=== PATIENT | male | born 1935 | race Caucasian/White ===

== ENCOUNTER → 2019-11-08 15:00 | Outpatient (CLI) | payer MEDICARE, SELFPAY ==
--- NOTE | ~2019-11-08 | XR_ITS ---
EXAMINATION: XR chest 2V EXAM DATE: 11/08/2019 15:16 INDICATION: Dyspnea. TECHNIQUE: Frontal and lateral projections of the chest obtained and reviewed. Comparison is made to prior examination from 12/15/2015. FINDINGS: The lungs are clear. There are no pleural effusions. The cardiomediastinal silhouette is within normal limits. There is no pneumothorax suspected. The bones and soft tissues are unremarkab le. IMPRESSION: No acute cardiopulmonary findings. Reviewed, dictated and finalized at location B.
== END ==
PROVIDERS: PCP Internal Medicine; Visit Provider Internal Medicine
DX: R06.00 Dyspnea, unspecified (principal)
CPT/HCPCS: 71046

== ENCOUNTER 2019-12-11 09:13 | Outpatient (CLI) | payer MEDICARE, SELFPAY ==
--- NOTE | ~2019-12-11 | NM_ITS ---
EXAMINATION: NM prabhjot stress w perfusion DATE: 12/11/2019 12:45 INDICATION: Dyspnea on exertion. TECHNIQUE: Rest images were obtained following intravenous administration of 9.3 mCi Tc99m tetrofosmi n (Myoview). The patient was infused intravenously with Lexiscan (regadenoson). Then, 27.2 mCi Tc99m tetrofosmin (Myoview) was administered intravenously, and stress images were obtained. Data was recon structed into short axis and horizontal and vertical long axis SPECT images. Gated SPECT images were also obtained. COMPARISON: None. FINDINGS: There is no definite reversible or fixed perfusion abnormality to suggest ischemia or infar ction. There is no segmental wall motion abnormality. Left ventricular ejection fraction measures > 70 %. IMPRESSION: 1. No definite ischemia or infarct. 2. Normal left ventricular ejection fraction measuring >70%. Reviewed, dictated and finalized at location A.
--- NOTE | 2019-12-11 10:46 | EST_ITS ---
Patient Info Name: Luiz Don Age: 83 years : 1935 Gender: Male Ht: 71 in Wt: 236 lbs BSA: 2.35 m2 Exam Date: 12/11/2019 10:57 AM Exam Location: [facility] Stress Patient Status: Outpatient Admit Date: 12/11/2019 Staff Ordering Physician: Perry Russ DO Attending Provider: Peryr Russ DO Exercise Technologist: Aldo Persaud RDCS, RT Exercise Physician: Venkat Magana DO Exam Type: CA stress prabhjot w NM Study Info A regadenoson stress test was performed. Summary 1. 1. Negative lexiscan stress test for ischemic ST changes by ECG criteria. 2. 2. Baseline hypertension. 3. 3. Nuclear scan to follow and will be reported separately. Please correlate with it. 4. 4. Patient informed of the above results. Protocol: Lexiscan Stress ECG Details Stage: REST Duration (min): 0 min : 54 sec HR (bpm): 59 SBP (mmHg): 141 DBP (mmHg): 82 Stage: REST Duration (min): 13 min : 31 sec HR (bpm): 61 SBP (mmHg): 141 DBP (mmHg): 82 Stage: STAGE 1 Duration (min): 0 min : 59 sec HR (bpm): 57 SBP (mmHg): 149 DBP (mmHg): 78 Stage: RECOVERY Duration (min): 1 min : 0 sec HR (bpm): 78 SBP (mmHg): 149 DBP (mmHg): 78 Stage: RECOVERY Duration (min): 2 min : 0 sec HR (bpm): 86 SBP (mmHg): 149 DBP (mmHg): 78 Stage: RECOVERY Duration (min): 3 min : 0 sec HR (bpm): 83 SBP (mmHg): 161 DBP (mmHg): 69 Stage: RECOVERY Duration (min): 3 min : 42 sec HR (bpm): 83 SBP (mmHg): 161 DBP (mmHg): 69 Rest HR: 61 bpm Peak HR: 90 bpm Rest Sys BP: 141 mmHg Peak Sys BP: 161 mmHg Max Pred HR: 138 bpm % Max Pred HR: 65 % Target HR: 117 bpm Max RPP: 14,490 bpm*mmHg Termination Reason: Completed protocol Cardiac Symptoms: None Total Time: 1 min : 0 sec Rest Blanco BP: 82 mmHg Peak Blanco BP: 69 mmHg Total Dose: 0.4 mg Resting ECG Sinus rhythm, IRBBB. Stress ECG No ST changes. Arrhythmias None. Report Signatures
--- NOTE | 2019-12-17 12:17 | WPDHOLTEREM ---
Holter/Event Monitor Holter/Event Monitor Date of procedure: 12/11/19 Procedure Type: 24 hour holter monitor Indications: Palpitations Conclusion: 1. 24 hour holter monitor on 12/11/19. 2. Underlying rhythm is sinus rhythm. HR range 46-103 bpm; average HR 67 bpm. 3. There are 17 premature supraventricular complexes and 1 supraventricular couplet. No supraventricular tachycardia. 4. There are 151 premature ventricular complexes, 2 ventricular couplets, and 3 ventricular trigeminy. No ventricular tachycardia. 5. No sinoatrial or atrioventricular blocks. No significant pauses greater than 2 seconds. 6. No symptoms available for correlation.
== END 2019-12-11 09:14 | disposition home or self-care (01) ==
PROVIDERS: PCP Internal Medicine; Visit Provider Internal Medicine
DX: R06.00 Dyspnea, unspecified (principal); R00.2 Palpitations
CPT/HCPCS: 78452; 93017; 93225; 93226; A9502; J2785

== ENCOUNTER 2020-01-24 09:29 | Outpatient (CLI) | payer MEDICARE, SELFPAY ==
--- NOTE | 2020-01-24 11:22 | PCRCNOTE ---
PT COMPLAINT OF DIZZINESS, SHORTNESS OF BREATH AND SHAKINESS AFTER 2 PUFFS ALBUTEROL DURING PFT TESTING. BP 138/78 SAO2 97% HEART RATE 64. SPOKE WITH DR. SHANKS'S OFFICE AND TOOK PT TO ER FOR EVALUATION.
--- NOTE | 2020-02-02 15:03 | WPDPFTINT ---
PFT Interpretation PFT Interpretation: This PFT met all criteria for ATS standards and reproducibility FEV/FVC post bronchodilator 72% FEV1 81% FVC 70% TLC 101% RV 109% RV/TLC 47% DLCO 94% when adjusted for alveolar volume but not adjusted for hemoglobin Flow volume loops were normal Impression: This is a normal PFT. Clinical correlation is advised.
== END 2020-01-24 09:30 | disposition home or self-care (01) ==
PROVIDERS: PCP Internal Medicine; Visit Provider Internal Medicine
DX: R06.00 Dyspnea, unspecified (principal)
CPT/HCPCS: 94375; 94726; 94729

== ENCOUNTER 2020-01-24 10:59 | Emergency (ER) | payer MEDICARE, SELFPAY ==
[2020-01-24] VITALS (12 sets, daily range): BP systolic 141–161; BP diastolic 70–85; PULSE 58–68; RESP 10–23; TEMP 36.1; O2SAT 95–100
--- NOTE | ~2020-01-24 | US_ITS ---
EXAMINATION: US venous doppler [facility] DATE: 01/24/2020 13:57 INDICATION: Left lower limb swelling TECHNIQUE: Boland scale images without and with compression and Doppler images of the left lower extrem ity veins were obtained. COMPARISON: None FINDINGS: The left common femoral vein, profunda femoral vein, femoral vein, popliteal vein, peroneal trunk, posterior tibial veins, and greater saphenous vein are patent. IMPRESSION: 1. Patent left lower extremity veins. No evidence of deep venous thrombosis. Reviewed, dictated and finalized at location A. NDARY ART TEACHER
--- NOTE | ~2020-01-24 | XR_ITS ---
EXAMINATION: XR chest 1V portable DATE: 01/24/2020 12:32 INDICATION: Shortness of breath TECHNIQUE: frontal view of the chest was obtained. COMPARISON: Chest radiograph dated 11/08/2019 FINDINGS: Small lung volumes mild bibasilar opacities most prominent at the left costophrenic angle which appea rs unchanged and would favor atelectasis over pneumonia. Pulmonary vascular congestion without rekha pulmonary edema. No pleural effusion or pneumothorax. Calcified nodules in the right upper lung zone consistent with old granulomatous disease. Heart size is within normal limits accounting for AP techn ique. IMPRESSION: 1. Mild opacities at the lung bases and favor atelectasis over pneumonia. 2. Pulmonary vascular congestion without rekha pulmonary edema. Reviewed, dictated and finalized at location A. RMAN
--- NOTE | 2020-01-24 11:20 | ECG_ITS ---
Measurements Intervals [place] Rate: 58 P: -46 CA: 124 QRS: 5 QRSD: 93 T: 27 QT: 419 QTc: 414 Interpretive Statements SINUS BRADYCARDIA BASELINE ARTIFACT- I, II, III, AVR, AVL, AVF, V1-V6 BORDERLINE ECG Electronically Signed On 01-24-2020 13:55:16 ART FRAMING MANAGER by Venkat Magana D.O.
[2020-01-24 11:47] LABS: Basophils Percent Auto 0.7 % (0.2-1.2); Eosinophils Absolute Auto 0.1 K/mm3 (0-0.3); Eosinophils Percent Auto 2.3 % (0-4.4); Hematocrit 45.1 % (42.0-52.0); Immature Granulocyte Absolute 0.01 K/mm3 (0.00-0.031); Immature Granulocyte Percent A 0.2 % (0-0.5); Lymphocytes Absolute Auto 1.25 K/mm3 (0.9-3.2); Lymphocytes Percent Auto 28.5 % (18.3-44.2); Mean Corpuscular HGB Conc 33.3 g/dl (32-36); Mean Corpuscular Hemoglobin 29.9 pg (26-34); Mean Platelet Volume 8.5 fl (7.4-10.4); Monocytes Absolute Auto 0.5 K/mm3 (0.1-0.6); Monocytes Percent Auto 11.2 % (2.6-8.5); Neutrophils Absolute Auto 2.5 K/mm3 (1.3-6.7); Neutrophils Percent Auto 57.1 % (45.5-73.1); Platelet Count Result 200 k/mm3 (150-375); Red Blood Count 5.01 M/mm3 (4.6-6.20); Red Cell Distribution Width 12.8 % (11.5-14.5); White Blood Count 4.4 K/mm3 (4.5-10.0)
[2020-01-24 11:58] LABS: Anion Gap 5 mmol/L (8-16); Blood Urea Nitrogen 23 mg/dL (9-20); Carbon Dioxide 28 mmol/L (22-30); Chloride 105 mmol/L (98-107); Estimated CRCL calculation 66 ml/min; Estimated Glomerular Filt Rate > 60; Glucose 112 mg/dL (75-110); Potassium 4.1 mmol/L (3.4-5.0); Sodium 138 mmol/L (137-145)
--- NOTE | 2020-01-24 12:18 | PC.NURSE ---
called lab for add-on Trop I Baseline 3034
[2020-01-24 12:51] LABS: Troponin I < 0.012 ng/mL (0.000-0.034)
--- NOTE | 2020-01-24 13:22 | PC.NURSE ---
PT INFORMED OF NEED FOR UA, STATES HE WILL ATTEMPT, REFUSING CATH.
--- NOTE | 2020-01-24 13:24 | ED.GENADULT ---
HPI - General Adult General Chief complaint: Unspecified Stated complaint: dizziness, sob during pul funtion test Time Seen by Provider: 01/24/20 12:07 Source: patient Mode of arrival: ambulatory Limitations: no limitations History of Present Illness HPI narrative: Patient is an 84-year-old male who presents from pulmonary function testing after being given albuterol he developed dizziness and shakiness was brought down for this upon arriving to the emergency department he notes his symptoms have resolved patient resting comfortably in the room in no distress notes he has had some mild leg swelling left more than right in the last week patient denies any pain shortness of breath URI symptoms and is currently resting asymptomatic Related Data Home Medications Medication Instructions Recorded Confirmed aspirin 81 mg tablet,delayed 81 mg PO DAILY 05/09/19 11/08/19 release ibuprofen 800 mg tablet 800 mg PO TID 05/09/19 11/08/19 mirabegron 25 mg tablet,extended 25 mg PO DAILY 05/09/19 11/08/19 release 24 hr multivitamin 1 tablet PO DAILY 05/09/19 11/08/19 Allergies Allergy/AdvReac Type Severity Reaction Status Date / Time No Known Allergies Allergy Verified 01/24/20 11:26 Review of Systems Review of Systems: All systems reviewed & are unremarkable except as noted in HPI and below PMFSH Past Medical History Medical History (Updated 01/24/20 @ 14:24 by Jason Caputo PA-C) CALHOUN (dyspnea on exertion) Essential (primary) hypertension RLS (restless legs syndrome) Type 2 diabetes mellitus without complication, with no history of insulin use Family History Family History Mother Family history of pancreatic cancer Sibling Family history of malignant neoplasm of ovary Father Family history of heart disease in male family member before age 55 Other Diabetes mellitus Social History Social History Smoking status: Never smoker Alcohol intake: current Exam Narrative: Exam Narrative: GENERAL: Well-appearing, well-nourished, and in no acute distress. HEAD: Normocephalic, atraumatic. EYES: PERRLA and EOMI. ENT: Nares clear, no rhinorrhea or epistaxis. Mucous membranes moist. NECK: Supple. No adenopathy or masses. No carotid bruits or JVD CHEST: Clear to auscultation. No respiratory distress. No wheezes rales or rhonchi HEART: Regular rate and rhythm. No murmur heard. Normal peripheral pulses. ABDOMEN: Soft, nontender, distended EXTREMITIES: Normal range of motion. 2+ edema bilateral lower extremities SKIN: Warm, dry, no rash. NEURO: No focal deficits. Alert and oriented x3. Cranial nerves II through XII grossly intact PSYCH: Normal mood and affect. Course Course Emergency Course: Patient in the room asymptomatic no high risk changes in the blood work or imaging likely could have had a reaction to the albuterol has remained asymptomatic otherwise felt appropriate for outpatient reevaluation provided with reasons to return and given a small fluid bolus in the emergency department Vital Signs Vital signs: Vital Signs Temperature 97.0 F L 01/24/20 11:17 Pulse Rate 58 L 01/24/20 11:17 Respiratory Rate 20 01/24/20 11:17 Blood Pressure 141/75 H 01/24/20 11:17 Pulse Oximetry 100 01/24/20 11:17 Temperature 97.0 F L 01/24/20 11:17 Pulse Rate 65 01/24/20 13:02 Respiratory Rate 13 01/24/20 13:02 Blood Pressure 143/77 H 01/24/20 13:02 Pulse Oximetry 97 01/24/20 13:02 Medical Decision Making [facility] Narrative Medical decision making narrative: Patient in the room in no distress aware of case findings treatment plan diagnosis agreeing to follow-up as directed or to return if symptoms worsen or concerns afebrile nontoxic-appearing no high risk changes in the blood work or imaging hemodynamically stable ABCs intact Vital Signs Vital Signs: Vital Signs Temperature
--- NOTE | 2020-01-24 13:42 | PC.NURSE ---
called chem, added BNP [id number]
[2020-01-24 14:01] LABS: NT Pro B Type Natriuretic Pept 39 PG/ML (5-100)
[2020-01-24 14:06] LABS: Add Urine Microscopic? YES; Appearance Urine Clear (Clear); Bilirubin Urine Negative (Negative); Blood Urine Negative (Negative); Color Urine Yellow (Yellow); Glucose Urine UA Negative (Negative); Ketones Urine Trace mg/dL (Negative); Leukocyte Esterase Ur Negative LEU/UL (Negative); Mucus Urine Rare /lpf; Nitrate Urine Negative (Negative); Protein Urine 1+ mg/dL (Negative); RBC Urine 0-2 /hpf (0-2); Specific Grav Ur 1.024 (1.001-1.035); Squamous Epithelial Cell Urine Rare /hpf (Few); Urobilinogen Urine Negative mg/dL (<2.0); WBC Urine 0-3 /hpf
== END 2020-01-24 14:46 | disposition home or self-care (01) ==
PROVIDERS: Emergency Medicine Emergency Medical Services; Emergency Provider Emergency Medicine; PCP Internal Medicine
DX: R42 Dizziness and giddiness (principal); I10 Essential (primary) hypertension; G25.81 Restless legs syndrome; E11.9 Type 2 diabetes mellitus without complications; R00.1 Bradycardia, unspecified; R91.8 Other nonspecific abnormal finding of lung field; R09.89 Other specified symptoms and signs involving the circulatory and respiratory systems; M79.89 Other specified soft tissue disorders; Z79.82 Long term (current) use of aspirin; R06.02 Shortness of breath
CPT/HCPCS: 36415; 71045; 80048; 81001; 83880; 84484; 85025; 93005; 93971; 94375; 94726; 94729; 99284

== ENCOUNTER → 2021-01-01 12:18 | Outpatient (CLI) | payer MEDICARE, SELFPAY ==
--- NOTE | ~2021-01-01 | MR_ITS ---
EXAMINATION: MR brain IAC wo/w con DATE: 01/01/2021 13:39 INDICATION: Sensorineural hearing loss. TECHNIQUE: Magnetic resonance imaging (MRI) of the brain, brainstem, and internal auditory canals was performed without and with 20 mL MultiHance intravenous contrast. Sequences included sagittal and ax ial T1-weighted FSE, axial diffusion-weighted FS EPI, axial T2*-weighted GRE, axial T2-weighted FLAIR Propeller, axial T2-weighted Propeller, small acxaj-gw-mxms coronal FIESTA, small nctbt-nv-fqke patricia nal T1-weighted FSE, and small ykrxq-do-ruee axial T1-weighted SPGR. Postcontrast sequences included axial T1-weighted FSE, small uzaui-cr-noiz coronal T1-weighted FSE, and small qctqm-xd-ogcd axial T1- weighted SPGR. Apparent diffusion coefficient (ADC) maps were created. COMPARISON: None. FINDINGS: There are scattered areas of nonspecific increased T2-weighted signal intensity in the cere bral white matter. There is no intracranial hemorrhage, acute infarction, or abnormal intracranial ma ss lesion. The ventricles are normal in size. The internal auditory canals and inner ears are normal. There are bilateral otomastoid effusions. There are likely changes of ocular lens replacement surger ies. The paranasal sinuses are clear. IMPRESSION: 1. Bilateral otomastoid effusions. 2. Moderate nonspecific cerebral white matter disease, which likely represents chronic small vessel i schemic disease. Reviewed, dictated and finalized at location A. IMPRESSION: 1. Bilateral otomastoid effusions. 2. Moderate nonspecific cerebral white matter disease, which likely represents chronic small vessel ischemic disease.
[2021-01-01 12:44] LABS: Estimated Glomerular Filt Rate 58
== END ==
DX: H90.3 Sensorineural hearing loss, bilateral (principal); H92.03 Otalgia, bilateral; R90.82 White matter disease, unspecified
CPT/HCPCS: 70553; A9577

== ENCOUNTER 2021-01-19 23:38 | Emergency (ER) | payer MEDICARE, SELFPAY ==
[2021-01-19 23:50] VITALS: BP 155/67; PULSE 65; RESP 16; O2SAT 99
--- NOTE | 2021-01-20 01:25 | ED.MALEGU ---
HPI - Male Genitourinary General Chief complaint: Urogenital-Male Stated complaint: I cant pee, and I need to be cathed Time Seen by Provider: 01/20/21 01:21 Source: patient Mode of arrival: ambulatory Limitations: no limitations History of Present Illness HPI Narrative: 85-year-old male status post intrathecal pain procedure today now with urinary retention since 4 PM he has not urinated. States this is can be a medication side effect. No fever, did have vomiting x1, no other complaints. No previous history of same. Related Data Home Medications Medication Instructions Recorded Confirmed aspirin 81 mg tablet,delayed 81 mg PO DAILY 05/09/19 01/21/21 release multivitamin 1 tablet PO DAILY 05/09/19 01/21/21 hydrocodone 5 mg-acetaminophen 325 1 tablet PO Q8H PRN 05/08/20 01/21/21 mg tablet Allergies Allergy/AdvReac Type Severity Reaction Status Date / Time No Known Allergies Allergy Verified 01/21/21 18:52 Review of Systems Review of Systems: CONSTITUTIONAL: no fever, no weight loss, no confusion EYES: no vision changes, no eye pain ENT: no rhinorrhea, no sore throat, no difficulty swallowing CARDIOVASCULAR: no chest pain, no leg edema, no palpitations RESPIRATORY: no cough, no shortness of breath, no hemoptysis GASTROINTESTINAL: no abdominal pain, no nausea, positive for vomiting, no diarrhea GENITOURINARY: no flank pain; urine obstruction SKIN: no rash, no jaundice MUSCULOSKELETAL: no back pain, no trauma. NEUROLOGIC: No headache, no dizziness, no focal weakness PSYCHIATRIC: No hallucinations, no suicidal ideation PMFSH Past Medical History Medical History CALHOUN (dyspnea on exertion) Essential (primary) hypertension RLS (restless legs syndrome) Type 2 diabetes mellitus without complication, with no history of insulin use Family History Family History Mother Family history of pancreatic cancer Sibling Family history of malignant neoplasm of ovary Father Family history of heart disease in male family member before age 55 Other Diabetes mellitus Social History Social History Smoking packs per day: 2 Smoking cigarettes per day: 40.0 Years smoked: 10 Smoking pack-years: 20.00 Smoking status: Former smoker Second hand tobacco smoke exposure: No Smoking end date: 12/04/1966 Alcohol intake: never Substance use: never Exam Narrative: General: alert, afebrile, answering all questions appropriately Head: normocephalic, atraumatic Eyes: EOMI bilaterally, anicteric, no injection ENT: moist mucous membranes, oropharynx patent, no rhinorrhea Neck: supple, trachea midline, no JVD Chest: equal chest rise bilaterally, no chest wall trauma noted : no CVA tend bilaterally, bladder distended EXT: no deformity noted, moving all extremities equally Skin: warm, dry, no pallor Neuro: alert, oriented x 3; CN 2-12 grossly intact, no dysarthria Psych: affect appropriate, though content normal Course Course Emergency Course: Patient with urinary retention after having an intrathecal pain procedure, has not urinated 5 hours, Sheldon catheter inserted upon arrival without difficulty patient without BPH, over 600 mL of clear urine in the cath bag. Patient states relief. Of note patient states he does not want to go home with a leg bag he was told by his doctor not to do that if he has additional trouble he will come back. Reevaluation(s) Reevaluation #1: Afebrile, feels better after cath. Does not want cath bag ambulatory with steady gait, no abdominal pain tolerating po has followup with PMD tomorrow Date: 01/20/21 Time: 02:55 Vital Signs Vital signs: Vital Signs Pulse Rate 65 01/19/21 23:50 Respiratory Rate 16 01/19/21 23:50 Blood Pressure 155/67 H 01/19/21 23:50 Pulse Oximetry 99 01/19/21 23:50 Pulse Rate 74
--- NOTE | 2021-01-20 02:45 | PC.NURSE ---
Pt wanted Catheter out. ERP aware and gave VRBO to take out hogan . Pt hogan removed.
[2021-01-20 02:48] LABS: Add Urine Microscopic? YES; Appearance Urine Clear (Clear); Bilirubin Urine Negative (Negative); Blood Urine Negative (Negative); Color Urine Yellow (Yellow); Glucose Urine UA Negative (Negative); Ketones Urine 1+ mg/dL (Negative); Leukocyte Esterase Ur Negative LEU/UL (Negative); Mucus Urine Few /lpf; Nitrate Urine Negative (Negative); Protein Urine Negative (Negative); Specific Grav Ur 1.023 (1.001-1.035); Squamous Epithelial Cell Urine Rare /hpf (Few); WBC Urine 0-3 /hpf
[2021-01-20 02:58] VITALS: BP 142/72; PULSE 74; RESP 16; O2SAT 99
== END 2021-01-20 02:59 | disposition home or self-care (01) ==
PROVIDERS: Emergency Provider Emergency Medicine; PCP Internal Medicine
DX: R33.9 Retention of urine, unspecified (principal); I10 Essential (primary) hypertension; G25.81 Restless legs syndrome; E11.9 Type 2 diabetes mellitus without complications
CPT/HCPCS: 81001; 99283

== ENCOUNTER 2021-01-21 12:53 | Observation (INO) | payer MEDICARE, SELFPAY ==
--- NOTE | ~2021-01-21 | XR_ITS ---
EXAMINATION: XR chest 1V portable INDICATION: Fever, hypertension TECHNIQUE: Portable AP chest at 1521 hours COMPARISON: 01/24/2020 FINDINGS: The lungs are free of acute opacities. There is no pleural effusion or pneumothorax. The ca rdiomediastinal silhouette is normal. IMPRESSION: 1. No acute cardiopulmonary abnormality. Reviewed, dictated and finalized at location B.
[2021-01-21 13:14] VITALS: BP 149/67; PULSE 104; RESP 14; TEMP 37.8; O2SAT 99
[2021-01-21 13:59] LABS: Add Urine Microscopic? YES; Appearance Urine Cloudy (Clear); Bilirubin Urine Negative (Negative); Blood Urine 3+ (Negative); Color Urine Amber (Yellow); Glucose Urine UA Negative (Negative); Ketones Urine 2+ mg/dL (Negative); Leukocyte Esterase Ur 1+ LEU/UL (Negative); Mucus Urine Moderate /lpf; Nitrate Urine Negative (Negative); Protein Urine 2+ mg/dL (Negative); RBC Urine >75 /hpf (0-2); Specific Grav Ur 1.021 (1.001-1.035); Squamous Epithelial Cell Urine Occasional /hpf (Few); WBC Urine >75 /hpf
[2021-01-21 14:41] LABS: Basophils Percent Auto 0.3 % (0.2-1.2); Hemoglobin 13.7 g/dL (14.0-18.0); Immature Granulocyte Absolute 0.07 K/mm3 (0.00-0.031); Immature Granulocyte Percent A 0.5 % (0-0.5); Lymphocytes Absolute Auto 0.87 K/mm3 (0.9-3.2); Lymphocytes Percent Auto 6.1 % (18.3-44.2); Mean Corpuscular HGB Conc 33.4 g/dl (32-36); Mean Corpuscular Hemoglobin 30.8 pg (26-34); Mean Corpuscular Volume 92.1 fl (80-100); Mean Platelet Volume 8.6 fl (7.4-10.4); Monocytes Absolute Auto 1.3 K/mm3 (0.1-0.6); Neutrophils Absolute Auto 12.1 K/mm3 (1.3-6.7); Neutrophils Percent Auto 84.1 % (45.5-73.1); Platelet Count Result 186 k/mm3 (150-375); Red Blood Count 4.45 M/mm3 (4.6-6.20); Red Cell Distribution Width 12.6 % (11.5-14.5); White Blood Count 14.4 K/mm3 (4.5-10.0)
[2021-01-21 14:52] LABS: Alanine Aminotransferase 23 U/L (4-50); Albumin Level 3.6 g/dL (3.5-5.1); Alkaline Phosphatase 60 U/L (38-126); Anion Gap 6 mmol/L (8-16); Aspartate Amino Transferase 28 U/L (17-59); Bilirubin,Total 1.2 mg/dL (0.2-1.3); Blood Urea Nitrogen 18 mg/dL (9-20); Calcium 8.9 mg/dL (8.4-10.2); Carbon Dioxide 25 mmol/L (22-30); Chloride 106 mmol/L (98-107); Estimated CRCL calculation 63 ml/min; Estimated Glomerular Filt Rate > 60; Glucose 116 mg/dL (65-110); Potassium 3.4 mmol/L (3.4-5.0); Sodium 137 mmol/L (137-145)
[2021-01-21] MEDS: SODIUM CHLORIDE 0.9% IV 500 ML 999 ML IV CONT (15:04)
[2021-01-21 15:15] VITALS: BP 150/70; PULSE 93; RESP 17; TEMP 37; O2SAT 98
[2021-01-21] MEDS: SODIUM CHLORIDE 0.9% IV 1,000 ML 999 ML IV CONT (15:55)
--- NOTE | 2021-01-21 16:01 | ED.GENADULT ---
HPI - General Adult General Chief complaint: Urogenital-Male Stated complaint: hematuria Time Seen by Provider: 01/21/21 13:24 Source: patient Mode of arrival: ambulatory Limitations: no limitations History of Present Illness HPI narrative: Patient presents with chief complaint of increased urinary frequency, pain and bleeding with urination that has worsened since being straight catheterized in this ER on Monday for urinary retention. Patient denies seeing blood clots. He reports he only has pain with urination. He denies difficulty voiding or feelings of retention. He has not seen his urologist dr chaudhary regarding his symptoms. He denies fever, nausea, vomiting, diarrhea. Related Data Home Medications Medication Instructions Recorded Confirmed aspirin 81 mg tablet,delayed 81 mg PO DAILY 05/09/19 11/20/20 release multivitamin 1 tablet PO DAILY 05/09/19 11/20/20 hydrocodone 5 mg-acetaminophen 325 1 tablet PO Q6H PRN 05/08/20 11/20/20 mg tablet Allergies Allergy/AdvReac Type Severity Reaction Status Date / Time No Known Allergies Allergy Verified 11/20/20 13:28 Review of Systems Review of Systems: CONSTITUTIONAL: Denies fever, chills, or sweats. EYES: Denies visual changes, redness, or discharge. ENT: Denies rhinorrhea, congestion, sore throat, or otalgia. CARDIOVASCULAR: Denies chest pain, palpitations, or edema. RESPIRATORY: Denies cough or dyspnea. GASTROINTESTINAL: Denies abdominal pain, nausea, vomiting, or diarrhea. GENITOURINARY: Reports dysuria and hematuria. SKIN: Denies rash or itching. MUSCULOSKELETAL: Denies back pain, myalgia, or joint pain NEUROLOGIC: Denies headache, numbness, dizziness, or weakness. PSYCHIATRIC: Denies anxiety or depression. [facility], [facility] Past Medical History Medical History CALHOUN (dyspnea on exertion) Essential (primary) hypertension RLS (restless legs syndrome) Type 2 diabetes mellitus without complication, with no history of insulin use Family History Family History Mother Family history of pancreatic cancer Sibling Family history of malignant neoplasm of ovary Father Family history of heart disease in male family member before age 55 Other Diabetes mellitus Social History Social History Smoking packs per day: 2 Smoking cigarettes per day: 40.0 Years smoked: 10 Smoking pack-years: 20.00 Smoking status: Former smoker Second hand tobacco smoke exposure: No Smoking end date: 12/04/1966 Alcohol intake: never Substance use: never Exam Narrative: GENERAL: Well-appearing, well-nourished. HEAD: Normocephalic, atraumatic. EYES: PERRLA and EOMI. NECK: Supple. No adenopathy or masses. No vertebral tenderness or loss of ROM. CHEST: Clear to auscultation. No respiratory distress. No wheezes rales or rhonchi HEART: Regular rate and rhythm. Normal peripheral pulses. ABDOMEN: Soft, nontender with palpation over bladder, normal active bowel sounds. No bruises noted. GENITALIA: Irritation to penile opening. No blood expressed or other lesions appreciated. Urinal with concentrated appearance to patients bedside. No pain with palpation of penis or testicles. EXTREMITIES: No acute changes in ROM. No edema. SKIN: Warm, dry, no rash. NEURO: No focal deficits. Alert and oriented x3. PSYCH: Normal mood and affect. Course Vital Signs Vital signs: Vital Signs Temperature 100.1 F H 01/21/21 13:14 Pulse Rate 104 H 01/21/21 13:14 Respiratory Rate 14 01/21/21 13:14 Blood Pressure 149/67 H 01/21/21 13:14 Pulse Oximetry 99 01/21/21 13:14 Temperature 98.6 F 01/21/21 15:15 Pulse Rate 93 01/21/21 15:15 Respiratory Rate 17 01/21/21 15:15 Blood Pressure 150/70 H 01/21/21 15:15 Pulse Oximetry 98 01/21/21 15:15 Medical Decision Making MDM Narrative Medical decisi
[2021-01-21] MEDS: HYDROcodone/acetaminophen (*CRX) 5-325 MG TABLET 1 TAB PO (16:13)
[2021-01-21 16:16] LABS: Lactic Acid Reflex 1.3 mmol/L (0.7-2.1)
[2021-01-21 19:10] VITALS: BP 159/52; PULSE 86; RESP 18; TEMP 36.3; O2SAT 99
[2021-01-21 19:11] VITALS: BP 159/52; PULSE 86; RESP 18; TEMP 36.3; O2SAT 99
[2021-01-21 19:31] VITALS: PULSE 84; RESP 18; O2SAT 96
--- NOTE | 2021-01-21 19:57 | PM.IMHP ---
H&P: HPI History of Present Illness Date/Time: 01/21/21 19:57 this is a 85-year-old year old male patient who had urinary retention this past Monday and had to be straight catheterized on that day. The patient stated that he noticed blood in his urine was having urinary frequency and urgency. Patient stated that he has some irritation. he denies any nausea vomiting or diarrhea. He denies any fever. His white count was noted to be 14.4. Patient's heart rate was initially 104 and he was given IV fluids and then is heart rate came down to the 80s. His temperature initially was 37.8? C. his urine was positive for UTI. Blood in urine cultures are pending. Chest x-ray was read as no acute cardiopulmonary abnormality. The patient was started on IV fluids and Rocephin he was also given [place]. The patient has hearing aids in but is still very hard of hearing. The patient is being admitted to observation status on the date of service of 01/21/2021. Chief Complaint: urinary frequency Review of Systems Review of Systems: All systems reviewed & are unremarkable except as noted in HPI and below Constitutional: Constitutional: Reports as per HPI and Reports no additional constitutional complaints Eyes: Eyes: Reports as per HPI and Reports no additional eye complaints ENT: Reports system reviewed and no additional complaints, except as documented and Reports Normal hearing present Cardiovascular: Cardiovascular: Reports no additional cardiovascular complaints Respiratory: Respiratory: Reports no additional respiratory complaints and Reports no additional respiratory complaints Gastrointestinal: Gastrointestinal: Reports as per HPI and Reports no additional gastrointestinal complaints Musculoskeletal: Musculoskeletal: Reports no additional musculoskeletal complaints Integumentary/Breasts: Skin/Breast: Reports system reviewed and no additional complaints, except as docu and Reports as per HPI Neurologic: Reports system reviewed and no additional complaints, except as documented, Reports as per HPI and Reports Normal hearing present Psychiatric: Psychiatric: Reports no additional psychiatric complaints and Reports as per HPI Endocrine: Endocrine: Reports no additional endocrine complaints Hematologic/Lymphatic: Hematologic/Lymphatic: Reports no additional hematologic/lymphatic complaints Allergic/Immunologic: Allergic/Immunologic: Reports no additional allergic/immunologic complaints [facility] Past Medical History Medical History (Updated 01/21/21 @ 20:05 by Kelsy Rodriguez NP) Chronic back pain DM2 (diabetes mellitus, type 2) CALHOUN (dyspnea on exertion) Essential (primary) hypertension Mixed hyperlipidemia RLS (restless legs syndrome) Type 2 diabetes mellitus without complication, with no history of insulin use Surgical History Surgical History (Updated 01/21/21 @ 20:05 by Kelsy Rodriguez NP) History of cataract extraction Hx of cholecystectomy Family History Family History Mother Family history of pancreatic cancer Sibling Family history of malignant neoplasm of ovary Father Family history of heart disease in male family member before age 55 Other Diabetes mellitus Social History Social History (Updated 01/21/21 @ 20:06 by Kelsy Rodriguez NP) Social History: the patient lives home alone his is in the alf. He has 2 children. His children are both the durable power civil rights attorney for healthcare. The patient still continues to work in sales. He denies any alcohol marijuana or illicit drugs. He is an ex-smoker. Code status full code Smoking packs per day: 2 Smoking cigarettes per day: 40.0 Years smoked: 10 Smoking pack-years: 20.00 Smoking status: Former smoker Second hand tobacco smoke exposure: No Smoking end date: 12/04/1966 Alcohol intake: never Substance use: never Meds Home Medications and Allergies Home Medi
[2021-01-21] MEDS: traZODone HCL 50 MG TABLET 300 MG PO (21:17)
[2021-01-21] MEDS: DULoxetine HCL 30 MG CAPSULE.DR PO (21:18)
--- NOTE | 2021-01-21 21:52 | ADMGEN ---
This patient, Luiz Don, was admitted to [facility] Room 332-01. Patient/family oriented to hospital policies and general routines including ID bracelet, bed and alarms, visiting hours, pain management, procedures, bathroom and other care routines, personal items, smoking policy, room service/diet, and visiting hours. Information on how to activate the Rapid Response Team has been discussed. Patient/Family are encouraged to report perceived risks to care and to ask questions if they do not understand what they are told or what they should do.
[2021-01-21 22:00] VITALS: BP 112/50; PULSE 91; RESP 18; TEMP 36.4; O2SAT 97
[2021-01-22 06:00] VITALS: BP 147/72; PULSE 98; RESP 18; TEMP 36.7; O2SAT 96
[2021-01-22 06:14] LABS: Basophils Percent Auto 0.3 % (0.2-1.2); Eosinophils Percent Auto 0.2 % (0-4.4); Hematocrit 38.7 % (42.0-52.0); Hemoglobin 12.9 g/dL (14.0-18.0); Immature Granulocyte Absolute 0.05 K/mm3 (0.00-0.031); Immature Granulocyte Percent A 0.4 % (0-0.5); Lymphocytes Absolute Auto 1.08 K/mm3 (0.9-3.2); Lymphocytes Percent Auto 8.8 % (18.3-44.2); Mean Corpuscular HGB Conc 33.3 g/dl (32-36); Mean Corpuscular Hemoglobin 29.9 pg (26-34); Mean Corpuscular Volume 89.8 fl (80-100); Mean Platelet Volume 8.5 fl (7.4-10.4); Monocytes Absolute Auto 1.1 K/mm3 (0.1-0.6); Neutrophils Percent Auto 81.3 % (45.5-73.1); Platelet Count Result 176 k/mm3 (150-375); Red Blood Count 4.31 M/mm3 (4.6-6.20); Red Cell Distribution Width 12.5 % (11.5-14.5); White Blood Count 12.3 K/mm3 (4.5-10.0)
[2021-01-22 06:24] LABS: Alanine Aminotransferase 20 U/L (4-50); Albumin Level 3.3 g/dL (3.5-5.1); Alkaline Phosphatase 55 U/L (38-126); Anion Gap 5 mmol/L (8-16); Aspartate Amino Transferase 30 U/L (17-59); Bilirubin,Total 1.1 mg/dL (0.2-1.3); Blood Urea Nitrogen 16 mg/dL (9-20); Calcium 8.6 mg/dL (8.4-10.2); Carbon Dioxide 23 mmol/L (22-30); Chloride 108 mmol/L (98-107); Estimated CRCL calculation 71 ml/min; Estimated Glomerular Filt Rate > 60; Glucose 118 mg/dL (65-110); Magnesium 1.9 mg/dL (1.6-2.3); Potassium 3.5 mmol/L (3.4-5.0); Sodium 136 mmol/L (137-145)
[2021-01-22 07:20] LABS: Thyroid Stimulating Hormone Reflex 0.749 uIU/mL (0.465-4.68)
[2021-01-22 07:50] LABS: Hemoglobin A1C 5.4 % (<5.7)
[2021-01-22] MEDS: HYDROcodone/acetaminophen (*CRX) 5-325 MG TABLET 1 TAB PO (08:49)
[2021-01-22] MEDS: DULoxetine HCL 30 MG CAPSULE.DR PO (08:50)
[2021-01-22] MEDS: lisinopriL 20 MG TABLET 40 MG PO (08:50)
[2021-01-22] MEDS: ENOXAPARIN 40 MG/0.4 ML SYRINGE SUB-Q (08:50)
[2021-01-22] MEDS: FUROSEMIDE 40 MG TABLET PO (08:50)
[2021-01-22] MEDS: MULTIVITAMINS THERAPEUTIC TAB (*BKC) 1 TABLET PO (08:50)
[2021-01-22] MEDS: PANTOPRAZOLE 40 MG TABLET PO (08:50)
[2021-01-22] MEDS: ASPIRIN 81 MG ENTERIC TABLET PO (08:50)
[2021-01-22] MEDS: CARBIDOPA/LEVODOPA 25/100 MG TABLET 1 TABLET PO (08:50)
[2021-01-22] MEDS: SIMVASTATIN 10 MG TABLET PO (08:50)
[2021-01-22 14:00] VITALS: BP 114/57; PULSE 64; RESP 16; TEMP 36.6; O2SAT 97
--- NOTE | 2021-01-22 15:12 | PM.IMPN ---
Progress Note: A&P Assessment and Plan (1) Acute UTI: Code(s): N39.0 - Urinary tract infection, site not specified Status: Acute Assessment and Plan: WBC improving Continue Rocephin BC pending Follow UC S/p straight cath on Monday, ?cause (2) DM2 (diabetes mellitus, type 2): Code(s): E11.9 - Type 2 diabetes mellitus without complications Status: Chronic Assessment and Plan: R/O A1c 5.4 Reported that he is borderline and that he is not monitoring his blood sugars or taking any medication at home (3) Mixed hyperlipidemia: Code(s): E78.2 - Mixed hyperlipidemia Status: Chronic Assessment and Plan: Continue simvastatin (4) RLS (restless legs syndrome): Code(s): G25.81 - Restless legs syndrome Status: Chronic Assessment and Plan: Continue Sinemet (5) Chronic back pain: Code(s): M54.9 - Dorsalgia, unspecified; G89.29 - Other chronic pain Status: Chronic Assessment and Plan: Pt reported plan for pain pump On chronic pain medication at home. (6) Essential (primary) hypertension: Code(s): I10 - Essential (primary) hypertension Status: Acute Assessment and Plan: Stable Continue with lisinopril and Lasix Monitor (7) Anxiety and depression: Code(s): F41.9 - Anxiety disorder, unspecified; F32.9 - Major depressive disorder, single episode, unspecified Status: Chronic Assessment and Plan: Continue Cymbalta and trazodone (8) Overactive bladder: Code(s): N32.81 - Overactive bladder Status: Acute Assessment and Plan: Reported that he is no longer taking any medication for this Subjective Date/time seen: 01/22/21 15:12 Interval history: Pt seen and evaluated; labs, vs, diagnostic reports reviewed; pt reports improved urinary symptoms Review of Systems Review of Systems: All systems reviewed & are unremarkable except as noted in HPI and below Exam Const: General: no acute distress, alert and awake Orientation/consciousness: patient oriented x3 HENMT: Head: normocephalic and atraumatic Ears: hearing grossly normal bilaterally Face and sinus: face symmetric Mouth: Yes Normal oral and palatal mucosa present Eyes: EOM: EOMs intact bilaterally Neck: Neck: full ROM, trachea midline and no JVD Resp: Effort & Inspection: normal respiratory effort Auscultation: clear to auscultation bilaterally Cardio: Jugular venous distension: no JVD Rate: regular rate Rhythm: regular rhythm Heart sounds: S1 normal heart sound present and S2 normal heart sound present GI: Inspection: normal to inspection GI Palp: Yes Soft to palpation Auscultation: normal bowel sounds : General: Yes no CVA tenderness Back/Spine/Pelvis: Back: no CVA tenderness Skin: General skin exam: normal color Rashes: no rashes Neuro: General: patient oriented x3 Cranial nerves: Yes Bilaterally intact EOM present and Yes hard of hearing Speech: normal speech Extrem: General: no clubbing, cyanosis or edema Psych: Appearance: grossly normal Affect: normal affect Judgement: Good judgement present (Psych) Objective Data Vital Signs Vital Signs: Vital Signs - 24 hr 01/21/21 15:15 01/21/21 19:10 01/21/21 19:11 Temperature 37.0 C 36.3 C L 36.3 C L Pulse Rate 93 86 86 Respiratory Rate 17 18 18 Blood Pressure 150/70 H 159/52 H 159/52 H Pulse Oximetry 98 99 99 01/21/21 19:31 01/21/21 22:00 01/22/21 06:00 Temperature 36.4 C 36.7 C Pulse Rate 84 91 98 Respiratory Rate 18 18 18 Blood Pressure 112/50 L 147/72 H Pulse Oximetry 96 97 96 Intake/Output Intake/Output: Intake & Output 01/19/21 01/20/21 01/21/21 01/22/21 23:59 23:59 23:59 23:59 Intake Total 1550 1452 Balance 1550 1452 Meds/Results Medications: Active Medications Generic Name Dose Route Start Last Admin Trade Name Freq PRN Reason Stop Dose Admin Hydrocodone Bitart/Acetaminophen 1 tab 01/21/21
--- NOTE | 2021-01-22 15:18 | PCCCNOTE ---
On 01/22/21, the student, [Deidre Ruiz ], provided care and completed [facility] documentation on this patient. I have reviewed the student's documentation and agree with the findings.
[2021-01-22 20:39] VITALS: PULSE 72; RESP 18; O2SAT 96
[2021-01-22] MEDS: traZODone HCL 50 MG TABLET 300 MG PO (21:09)
[2021-01-22 22:00] VITALS: BP 130/55; PULSE 81; RESP 18; TEMP 37.1; O2SAT 98
[2021-01-23 06:00] VITALS: BP 135/49; PULSE 70; RESP 18; TEMP 36.7; O2SAT 96
[2021-01-23 07:36] LABS: Hematocrit 37.2 % (42.0-52.0); Hemoglobin 12.5 g/dL (14.0-18.0); Mean Corpuscular HGB Conc 33.6 g/dl (32-36); Mean Corpuscular Volume 89.4 fl (80-100); Mean Platelet Volume 8.7 fl (7.4-10.4); Platelet Count Result 179 k/mm3 (150-375); Red Blood Count 4.16 M/mm3 (4.6-6.20); Red Cell Distribution Width 12.5 % (11.5-14.5); White Blood Count 8.7 K/mm3 (4.5-10.0)
[2021-01-23 07:46] LABS: Anion Gap 7 mmol/L (8-16); Blood Urea Nitrogen 15 mg/dL (9-20); Calcium 8.5 mg/dL (8.4-10.2); Carbon Dioxide 24 mmol/L (22-30); Chloride 106 mmol/L (98-107); Estimated CRCL calculation 63 ml/min; Estimated Glomerular Filt Rate > 60; Glucose 106 mg/dL (65-110); Potassium 3.5 mmol/L (3.4-5.0); Sodium 137 mmol/L (137-145)
[2021-01-23 08:00] VITALS: PULSE 70; RESP 18; O2SAT 96
[2021-01-23] MEDS: HYDROcodone/acetaminophen (*CRX) 5-325 MG TABLET 1 TAB PO ×3 (10:06→21:44)
[2021-01-23] MEDS: ENOXAPARIN 40 MG/0.4 ML SYRINGE SUB-Q (10:07)
[2021-01-23] MEDS: FUROSEMIDE 40 MG TABLET PO (10:07)
[2021-01-23] MEDS: PANTOPRAZOLE 40 MG TABLET PO (10:07)
[2021-01-23] MEDS: CARBIDOPA/LEVODOPA 25/100 MG TABLET 1 TABLET PO (10:08)
[2021-01-23] MEDS: MULTIVITAMINS THERAPEUTIC TAB (*BKC) 1 TABLET PO (10:08)
[2021-01-23] MEDS: ASPIRIN 81 MG ENTERIC TABLET PO (10:09)
--- NOTE | 2021-01-23 15:24 | PM.IMPN ---
Progress Note: A&P Assessment and Plan (1) Acute UTI: Code(s): N39.0 - Urinary tract infection, site not specified Status: Acute Assessment and Plan: WBC normalized improving Continue Rocephin BC pending UC-->Escherichia Coli S/p straight cath on Monday, ?etiology (2) DM2 (diabetes mellitus, type 2): Code(s): E11.9 - Type 2 diabetes mellitus without complications Status: Chronic Assessment and Plan: R/O A1c 5.4 Reported that he is borderline and that he is not monitoring his blood sugars or taking any medication at home (3) Mixed hyperlipidemia: Code(s): E78.2 - Mixed hyperlipidemia Status: Chronic Assessment and Plan: Continue simvastatin (4) RLS (restless legs syndrome): Code(s): G25.81 - Restless legs syndrome Status: Chronic Assessment and Plan: Continue Sinemet (5) Chronic back pain: Code(s): M54.9 - Dorsalgia, unspecified; G89.29 - Other chronic pain Status: Chronic Assessment and Plan: Pt reported plan for pain pump On chronic pain medication at home (6) Essential (primary) hypertension: Code(s): I10 - Essential (primary) hypertension Status: Acute Assessment and Plan: Stable Continue with lisinopril and Lasix Monitor (7) Anxiety and depression: Code(s): F41.9 - Anxiety disorder, unspecified; F32.9 - Major depressive disorder, single episode, unspecified Status: Chronic Assessment and Plan: Continue Cymbalta and trazodone (8) Overactive bladder: Code(s): N32.81 - Overactive bladder Status: Acute Assessment and Plan: Reported that he is no longer taking any medication for this (9) Generalized weakness: Code(s): R53.1 - Weakness Status: Acute Assessment and Plan: PT to eval and treat Fall precautions O2 sats >95% on RA Subjective Date/time seen: 01/23/21 15:24 Interval history: 01/22 Pt seen and evaluated; labs, vs, diagnostic reports reviewed; pt reports improved urinary symptoms 01/23 pt seen this a.m.; complains of some generalized weakness and CALHOUN; no other complaints Review of Systems Review of Systems: All systems reviewed & are unremarkable except as noted in HPI and below Exam Const: General: no acute distress, alert and awake Orientation/consciousness: patient oriented x3 HENMT: Head: normocephalic and atraumatic Ears: hearing grossly normal bilaterally Face and sinus: face symmetric Mouth: Yes Normal oral and palatal mucosa present Eyes: EOM: EOMs intact bilaterally Neck: Neck: full ROM, trachea midline and no JVD Resp: Effort & Inspection: normal respiratory effort Auscultation: clear to auscultation bilaterally Cardio: Jugular venous distension: no JVD Rate: regular rate Rhythm: regular rhythm Heart sounds: S1 normal heart sound present and S2 normal heart sound present GI: Inspection: normal to inspection Auscultation: normal bowel sounds : General: Yes no CVA tenderness Skin: General skin exam: normal color Rashes: no rashes Neuro: General: patient oriented x3 Cranial nerves: Yes Bilaterally intact EOM present and Yes hard of hearing Speech: normal speech Extrem: General: no clubbing, cyanosis or edema Psych: Appearance: grossly normal Affect: normal affect Judgement: Good judgement present (Psych) Objective Data Vital Signs Vital Signs: Vital Signs - 24 hr 01/22/21 20:39 01/22/21 22:00 01/23/21 06:00 Temperature 37.1 C 36.7 C Pulse Rate 72 81 70 Respiratory Rate 18 18 18 Blood Pressure 130/55 L 135/49 L Pulse Oximetry 96 98 96 01/23/21 08:00 Temperature Pulse Rate 70 Respiratory Rate 18 Blood Pressure Pulse Oximetry 96 Intake/Output Intake/Output: Intake & Output 01/20/21 01/21/21 01/22/21 01/23/21 23:59 23:59 23:59 23:59 Intake Total 1550 2482 350 Balance 1550 2482 350 Meds/Results Medications: Active Medications Generic Nam
[2021-01-23 15:31] VITALS: BP 109/52; PULSE 87; RESP 18; TEMP 36.9; O2SAT 99
[2021-01-23] MEDS: SIMVASTATIN 10 MG TABLET PO (16:47)
[2021-01-23] MEDS: lisinopriL 20 MG TABLET 40 MG PO (16:48)
[2021-01-23 21:44] VITALS: BP 147/54; PULSE 61; RESP 16; TEMP 36.2; O2SAT 97
[2021-01-23] MEDS: traZODone HCL 50 MG TABLET 300 MG PO (21:45)
--- NOTE | 2021-01-24 01:00 | PC.NURSE ---
Daylight Savings Time For Daylight Savings Time Ending in the Fall - Clocks are moved back. For Daylight Savings Time Beginning in the Spring - Clocks are moved ahead. For [facility], the time of change occurs at 0200 hrs. Time is taken from the prospecting observer. This entry on the patient's chart recognizes the change in time reflected during documentation. Example: 2 entries for vital signs may be charted for 0200 hrs.
[2021-01-24] MEDS: HYDROcodone/acetaminophen (*CRX) 5-325 MG TABLET 1 TAB PO ×4 (01:39→22:31)
[2021-01-24 06:00] VITALS: BP 141/49; PULSE 75; RESP 18; TEMP 36.2; O2SAT 94
[2021-01-24 08:00] VITALS: PULSE 75; RESP 18; O2SAT 94
[2021-01-24 08:09] LABS: Anion Gap 6 mmol/L (8-16); Blood Urea Nitrogen 14 mg/dL (9-20); Calcium 8.5 mg/dL (8.4-10.2); Carbon Dioxide 27 mmol/L (22-30); Chloride 104 mmol/L (98-107); Estimated CRCL calculation 63 ml/min; Estimated Glomerular Filt Rate > 60; Glucose 134 mg/dL (65-110); Potassium 3.2 mmol/L (3.4-5.0); Sodium 137 mmol/L (137-145)
[2021-01-24 08:32] LABS: Hematocrit 39.4 % (42.0-52.0); Hemoglobin 12.8 g/dL (14.0-18.0); Mean Corpuscular HGB Conc 32.5 g/dl (32-36); Mean Corpuscular Hemoglobin 29.8 pg (26-34); Mean Corpuscular Volume 91.8 fl (80-100); Platelet Count Result 201 k/mm3 (150-375); Red Blood Count 4.29 M/mm3 (4.6-6.20); Red Cell Distribution Width 12.6 % (11.5-14.5); White Blood Count 5.7 K/mm3 (4.5-10.0)
[2021-01-24] MEDS: CARBIDOPA/LEVODOPA 25/100 MG TABLET 1 TABLET PO (09:32)
[2021-01-24] MEDS: MULTIVITAMINS THERAPEUTIC TAB (*BKC) 1 TABLET PO (09:32)
[2021-01-24] MEDS: FUROSEMIDE 40 MG TABLET PO (09:32)
[2021-01-24] MEDS: ASPIRIN 81 MG ENTERIC TABLET PO (09:32)
[2021-01-24] MEDS: POTASSIUM CHLORIDE 20 MEQ TABLET 40 MEQ PO (09:32)
[2021-01-24] MEDS: PANTOPRAZOLE 40 MG TABLET PO (09:32)
[2021-01-24] MEDS: ENOXAPARIN 40 MG/0.4 ML SYRINGE SUB-Q (09:32)
--- NOTE | 2021-01-24 13:41 | PM.IMPN ---
Progress Note: A&P Assessment and Plan (1) Acute UTI: Code(s): N39.0 - Urinary tract infection, site not specified Status: Acute Assessment and Plan: WBC normalized improving Continue Rocephin BC pending UC-->Escherichia Coli S/p straight cath on Monday, ?etiology (2) DM2 (diabetes mellitus, type 2): Code(s): E11.9 - Type 2 diabetes mellitus without complications Status: Chronic Assessment and Plan: R/O A1c 5.4 Reported that he is borderline and that he is not monitoring his blood sugars or taking any medication at home (3) Mixed hyperlipidemia: Code(s): E78.2 - Mixed hyperlipidemia Status: Chronic Assessment and Plan: Continue simvastatin (4) RLS (restless legs syndrome): Code(s): G25.81 - Restless legs syndrome Status: Chronic Assessment and Plan: Continue Sinemet (5) Chronic back pain: Code(s): M54.9 - Dorsalgia, unspecified; G89.29 - Other chronic pain Status: Chronic Assessment and Plan: Pt reported plan for pain pump On chronic pain medication at home (6) Essential (primary) hypertension: Code(s): I10 - Essential (primary) hypertension Status: Acute Assessment and Plan: Stable Continue with lisinopril and Lasix Monitor (7) Anxiety and depression: Code(s): F41.9 - Anxiety disorder, unspecified; F32.9 - Major depressive disorder, single episode, unspecified Status: Chronic Assessment and Plan: Continue Cymbalta and trazodone (8) Overactive bladder: Code(s): N32.81 - Overactive bladder Status: Acute Assessment and Plan: Reported that he is no longer taking any medication for this (9) Generalized weakness: Code(s): R53.1 - Weakness Status: Acute Assessment and Plan: PT to eval and treat Fall precautions O2 sats >95% on RA (10) Hypokalemia: Code(s): E87.6 - Hypokalemia Status: Acute Assessment and Plan: Mild K+ 3.2 Replaced with 40 meq KCL Monitor Additional Plan d/c home in a.m. on oral antibiotics if HD stable Subjective Date/time seen: 01/24/21 13:41 Interval history: 01/22 Pt seen and evaluated; labs, vs, diagnostic reports reviewed; pt reports improved urinary symptoms 11/6 pt seen this a.m.; complains of some generalized weakness and CALHOUN; no other complaints 01/24 pt resting in bed this a.m; no acute events overnight; PT eval today Review of Systems Review of Systems: All systems reviewed & are unremarkable except as noted in HPI and below Exam Const: General: no acute distress, alert and awake Orientation/consciousness: patient oriented x3 HENMT: Head: normocephalic and atraumatic Ears: hearing grossly normal bilaterally Face and sinus: face symmetric Mouth: Yes Normal oral and palatal mucosa present Eyes: EOM: EOMs intact bilaterally Neck: Neck: full ROM, trachea midline and no JVD Resp: Effort & Inspection: normal respiratory effort Auscultation: clear to auscultation bilaterally Cardio: Jugular venous distension: no JVD Rate: regular rate Rhythm: regular rhythm Heart sounds: S1 normal heart sound present and S2 normal heart sound present GI: Inspection: normal to inspection Auscultation: normal bowel sounds : General: Yes no CVA tenderness Back/Spine/Pelvis: Back: no CVA tenderness Skin: General skin exam: normal color Rashes: no rashes Neuro: General: patient oriented x3 Cranial nerves: Yes Bilaterally intact EOM present and Yes hard of hearing Speech: normal speech Extrem: General: no clubbing, cyanosis or edema Psych: Appearance: grossly normal Affect: normal affect Judgement: Good judgement present (Psych) Objective Data Vital Signs Vital Signs: Vital Signs - 24 hr 01/23/21 15:31 01/23/21 21:44 01/24/21 06:00 Temperature 36.9 C 36.2 C L 36.2 C L Pulse Rate 87 61 75 Respiratory Rate 18 16 18 Blood Pressure 109/52 L 147/54 H 141/49 H
[2021-01-24 15:21] VITALS: BP 130/59; PULSE 73; RESP 18; TEMP 37; O2SAT 97
[2021-01-24] MEDS: SIMVASTATIN 10 MG TABLET PO (17:59)
[2021-01-24] MEDS: lisinopriL 20 MG TABLET 40 MG PO (17:59)
[2021-01-24 19:01] VITALS: BP 137/71; PULSE 68; RESP 18; TEMP 36.9; O2SAT 99
[2021-01-24] MEDS: traZODone HCL 50 MG TABLET 300 MG PO (21:11)
[2021-01-25 05:43] VITALS: BP 146/60; PULSE 55; RESP 12; TEMP 36.4; O2SAT 98
[2021-01-25] MEDS: HYDROcodone/acetaminophen (*CRX) 5-325 MG TABLET 1 TAB PO (06:07)
[2021-01-25 07:01] LABS: Anion Gap 7 mmol/L (8-16); Blood Urea Nitrogen 12 mg/dL (9-20); Calcium 8.8 mg/dL (8.4-10.2); Carbon Dioxide 27 mmol/L (22-30); Chloride 105 mmol/L (98-107); Estimated CRCL calculation 71 ml/min; Estimated Glomerular Filt Rate > 60; Glucose 102 mg/dL (65-110); Potassium 3.4 mmol/L (3.4-5.0); Sodium 139 mmol/L (137-145)
[2021-01-25] MEDS: ENOXAPARIN 40 MG/0.4 ML SYRINGE SUB-Q (10:41)
[2021-01-25] MEDS: MULTIVITAMINS THERAPEUTIC TAB (*BKC) 1 TABLET PO (10:42)
[2021-01-25] MEDS: DULoxetine HCL 30 MG CAPSULE.DR PO (10:42)
[2021-01-25] MEDS: ASPIRIN 81 MG ENTERIC TABLET PO (10:42)
[2021-01-25] MEDS: FUROSEMIDE 40 MG TABLET PO (10:42)
[2021-01-25] MEDS: PANTOPRAZOLE 40 MG TABLET PO (10:42)
[2021-01-25] MEDS: CARBIDOPA/LEVODOPA 25/100 MG TABLET 1 TABLET PO (10:42)
[2021-01-25] MEDS: lisinopriL 20 MG TABLET 40 MG PO (12:26)
[2021-01-25] MEDS: SIMVASTATIN 10 MG TABLET PO (12:27)
[2021-01-25 14:00] VITALS: BP 119/63; PULSE 80; RESP 18; TEMP 36.4; O2SAT 100
--- NOTE | 2021-01-25 14:00 | PM.DS ---
DS: Admitting Diagnosis Discharge Date 01/25/2021 Admitting Diagnosis UTI DS: Discharge Diagnosis Discharge Diagnosis (1) Acute UTI: Code(s): N39.0 - Urinary tract infection, site not specified Status: Acute Assessment and Plan: UA abnormal on presentation. Urine culture with growth of >100k E coli. Started on IV Rocephin and transition to p.o. Bactrim which will be continued to complete 7 days of antibiotic. White blood cell count normalized. Low-grade fever resolved. Blood cultures negative. (2) DM2 (diabetes mellitus, type 2): Code(s): E11.9 - Type 2 diabetes mellitus without complications Status: Chronic Assessment and Plan: A1c 5.4. No further monitoring required during hospitalization. Continue with appropriate diet. He is not on hypoglycemic agents (3) Chronic back pain: Code(s): M54.9 - Dorsalgia, unspecified; G89.29 - Other chronic pain Status: Chronic Assessment and Plan: He is scheduled for a morphine pain pump in March 2021. He is on chronic narcotic pain medication at home. Recommended daily MiraLax and Colace to avoid opioid induced constipation. (4) Essential (primary) hypertension: Code(s): I10 - Essential (primary) hypertension Status: Acute Assessment and Plan: Blood pressures monitor during hospital stay and remained well controlled. Continue lisinopril. (5) Generalized weakness: Code(s): R53.1 - Weakness Status: Acute Assessment and Plan: Likely related to UTI. He was evaluated by PT/OT during his hospital stay and felt to be consistent with prior level of function, no ongoing therapy services required. (6) Hypokalemia: Code(s): E87.6 - Hypokalemia Status: Acute Assessment and Plan: Potassium was mildly decreased at 3.2 on one occasion and was supplemented. Subsequent potassium levels were stable. This may be due to furosemide use. No potassium supplementation initiated as the patient was started on Bactrim. He is also on lisinopril, so would anticipate that his potassium levels level out with these medications. DS: Summary Hospital Course Hospital Course: Date of admission: 01/21/2021 Date of discharge: 01/25/2021 Luiz Don is an 85-year-old male with a history of hypertension, hyperlipidemia, controlled type 2 diabetes mellitus, and chronic back pain who presented to the emergency department on 01/21/2021 he was mildly tachycardic and had low-grade temperature of 100.1?, white blood cell count 10295, H&H slightly decreased, additional CBC and BMP unremarkable, UA abnormal, and CXR showed no acute findings. He was admitted to the hospitalist service for further evaluation and management. Please see above for further details. He was treated with antibiotics for UTI and had symptomatic improvement. He was feeling much better and was very eager for discharge home. Given his overall improvement, he was determined to no longer require inpatient care and was felt to be stable for discharge. We discussed worrisome signs and symptoms for which to return and he was educated on his medications. He was discharged in hemodynamically stable condition on 01/25/2021. Status at Discharge Functional status at discharge: independent ambulation Overall status at discharge: patient is back to baseline Time Spent with Patient Time attestation: Total time spent providing and/or coordinating discharge services: 45 minutes Time spent: Greater than 30 minutes Exam Narrative: Mr. Don is a well-nourished, well-appearing 85-year-old male who is lying supine in bed. He appears comfortable and is in NARD. Neuro: awake, alert and oriented x4, speech clear, no focal neuro deficits noted HEENMT: normocephalic, atraumatic, EOMI, sclerae anicteric, moist oral mucosa, very hard of hearing Neck: supple, no lymphadenopathy Respiratory: clear to auscultation bilaterally, nonl
== END 2021-01-25 15:42 | disposition home or self-care (01) ==
LOC: ANHED 16:14 → ANH3MEDSUR 17:47
PROVIDERS: Nurse Practitioner; Nurse Practitioner Adult Health; Physician Assistant; Admitting Provider Internal Medicine; Emergency Provider Emergency Medicine; PCP Internal Medicine; Visit Provider Physician Assistant
DX: N39.0 Urinary tract infection, site not specified (principal); B96.20 Unspecified Escherichia coli [E. coli] as the cause of diseases classified elsewhere; N32.81 Overactive bladder; R35.0 Frequency of micturition; E11.9 Type 2 diabetes mellitus without complications; E78.2 Mixed hyperlipidemia; F41.8 Other specified anxiety disorders; G25.81 Restless legs syndrome; G89.29 Other chronic pain; I10 Essential (primary) hypertension; M54.9 Dorsalgia, unspecified; Z87.891 Personal history of nicotine dependence
CPT/HCPCS: 36415; 71045; 80048; 80053; 81001; 83036; 83605; 83735; 84443; 85025; 85027; 87040; 87077; 87086; 87186; 96361; 96365; 96372; 97161; 99285; A9270; G0378; J0696; J1650; J7030; J7040

== ENCOUNTER 2021-03-30 16:11 | Emergency (ER) | payer MEDICARE, SELFPAY ==
[2021-03-30] VITALS (15 sets, daily range): BP systolic 130–146; BP diastolic 58–72; PULSE 54–64; RESP 12–22; TEMP 36.8; O2SAT 96–100
--- NOTE | ~2021-03-30 | XR_ITS ---
EXAMINATION: XR chest 2V DATE: 03/30/2021 16:35 INDICATION: Intermittent chest pain, hypertension TECHNIQUE: AP and lateral views of the chest are obtained. COMPARISON: 01/21/2021 FINDINGS: The lungs are free of acute opacities. There is no pleural effusion or pneumothorax. The ca rdiomediastinal silhouette is normal. There is moderate thoracic spondylosis. Surgical clips in the r ight upper quadrant are likely from prior cholecystectomy. IMPRESSION: 1. No acute cardiopulmonary abnormality. Reviewed, dictated and finalized at location F. [employer]ETARY
--- NOTE | 2021-03-30 16:18 | ECG_ITS ---
Measurements Intervals Stout Rate: 59 P: 31 IL: 168 QRS: -1 QRSD: 100 T: 8 QT: 436 QTc: 435 Interpretive Statements SINUS BRADYCARDIA BASELINE ARTIFACT- I, II, III, AVR, AVL, AVF, V1-V6 BORDERLINE ECG Electronically Signed On 03-30-2021 16:44:24 [employer] by Venkat Magana D.O.
--- NOTE | 2021-03-30 16:26 | ED.CHESTPAIN ---
HPI - Chest Pain General Chief Complaint: Chest Pain <Corona Watts MD - Last Filed: 03/31/21 11:23> Stated Complaint: sob/cp <Corona Watts MD - Last Filed: 03/31/21 11:23> Time Seen by Provider: 03/30/21 16:12 <oCrona Watts MD - Last Filed: 03/31/21 11:23> Source: patient and RN notes reviewed <Corona Watts MD - Last Filed: 03/31/21 11:23> Mode of arrival: EMS <Corona Watts MD - Last Filed: 03/31/21 11:23> Limitations: no limitations <Corona Watts MD - Last Filed: 03/31/21 11:23> History of Present Illness HPI narrative: 85-year-old male presented to the emergency department for evaluation of a pounding heartbeat. Patient states 4 times over the last few days he has had a sensation of pounding heartbeat. Patient denies any associated pain with this. Patient states he has not had a rapid heart rate. Patient denies any associated shortness of breath with it. Patient states that the episodes have occurred at rest. Patient denies any significant past medical cardiac history. Patient did have a stress test a few years ago. Patient did have a pain pump implanted about 3 days ago. The pump disperses Dilaudid. Patient had been on p.o. hydrocodone for his chronic back pain. <Corona Watts MD - Last Filed: 03/31/21 11:23> Related Data Home Medications: Home Medications Medication Instructions Recorded Confirmed aspirin 81 mg tablet,delayed 81 mg PO DAILY 05/09/19 01/26/21 release multivitamin 1 tablet PO DAILY 05/09/19 01/26/21 docusate sodium 100 mg PO BID 03/30/21 pioglitazone 15 mg DAILY 03/30/21 03/30/21 tamsulosin 0.4 mg PO DAILY 03/30/21 03/30/21 <Corona Watts MD - Last Filed: 03/31/21 11:23> Allergies/Adverse Reactions: Allergies Allergy/AdvReac Type Severity Reaction Status Date / Time No Known Allergies Allergy Verified 03/30/21 16:29 <Corona Watts MD - Last Filed: 03/31/21 11:23> Review of Systems Review of Systems: CONSTITUTIONAL: Denies fever, chills, or sweats. EYES: Denies visual changes, redness, or discharge. ENT: Denies rhinorrhea, congestion, sore throat, or otalgia. CARDIOVASCULAR: Denies chest pain or chest pressure. Patient states intermittently he has had a pounding heartbeat. RESPIRATORY: Denies cough or dyspnea. GASTROINTESTINAL: Denies abdominal pain, nausea, vomiting, or diarrhea. GENITOURINARY: Denies dysuria or hematuria. SKIN: Denies rash or itching. MUSCULOSKELETAL: Denies back pain, joint pain, or myalgia. NEUROLOGIC: Denies headache, numbness, or weakness. PSYCHIATRIC: Denies anxiety or depression. <Corona Watts MD - Last Filed: 03/31/21 11:23> [facility] Past Medical History Medical History: Medical History (Updated 03/30/21 @ 20:54 by Corona Watts MD) Chronic back pain DM2 (diabetes mellitus, type 2) CALHOUN (dyspnea on exertion) Essential (primary) hypertension Mixed hyperlipidemia RLS (restless legs syndrome) Type 2 diabetes mellitus without complication, with no history of insulin use <Corona Watts MD - Last Filed: 03/31/21 11:23> Surgical History Surgical History: Surgical History (Updated 01/21/21 @ 20:05 by Kelsy Rodriguez NP) History of cataract extraction Hx of cholecystectomy <Corona Watts MD - Last Filed: 03/31/21 11:23> Family History Family History: Family History Mother Family history of pancreatic cancer Sibling Family history of malignant neoplasm of ovary Father Family history of heart disease in male family member before age 55 Other Diabetes mellitus <Corona Watts MD - Last Filed: 03/31/21 11:23> Social History Social History: Social History Social History: the patient lives home alone his is in the jail. He has 2 children. His children are both the durable power employment attorney fo
[2021-03-30] MEDS: ASPIRIN 81 MG CHEWABLE TABLET 324 MG PO (16:47)
[2021-03-30 16:57] LABS: Basophils Absolute Auto 0.1 K/mm3 (0.0-0.1); Basophils Percent Auto 1.4 % (0.2-1.2); Eosinophils Absolute Auto 0.4 K/mm3 (0-0.3); Eosinophils Percent Auto 9.7 % (0-4.4); Hematocrit 41.3 % (42.0-52.0); Hemoglobin 13.6 g/dL (14.0-18.0); Lymphocytes Absolute Auto 1.22 K/mm3 (0.9-3.2); Lymphocytes Percent Auto 27.6 % (18.3-44.2); Mean Corpuscular HGB Conc 32.9 g/dl (32-36); Mean Corpuscular Hemoglobin 29.8 pg (26-34); Mean Corpuscular Volume 90.6 fl (80-100); Mean Platelet Volume 8.2 fl (7.4-10.4); Monocytes Absolute Auto 0.5 K/mm3 (0.1-0.6); Monocytes Percent Auto 12.2 % (2.6-8.5); Neutrophils Absolute Auto 2.2 K/mm3 (1.3-6.7); Neutrophils Percent Auto 49.1 % (45.5-73.1); Platelet Count Result 233 k/mm3 (150-375); Red Blood Count 4.56 M/mm3 (4.6-6.20); Red Cell Distribution Width 12.5 % (11.5-14.5); White Blood Count 4.4 K/mm3 (4.5-10.0)
[2021-03-30 17:10] LABS: INR 1.1; Partial Thromboplastin Time 29.1 SECONDS (22.3-36.8); Prothrombin Time 14.5 Seconds (11.1-14.7)
[2021-03-30 19:15] LABS: Alanine Aminotransferase 20 U/L (4-50); Albumin Level 3.6 g/dL (3.5-5.1); Alkaline Phosphatase 71 U/L (38-126); Anion Gap 5 mmol/L (8-16); Aspartate Amino Transferase 28 U/L (17-59); Bilirubin,Total 0.4 mg/dL (0.2-1.3); Blood Urea Nitrogen 17 mg/dL (9-20); Calcium 9.2 mg/dL (8.4-10.2); Carbon Dioxide 29 mmol/L (22-30); Chloride 102 mmol/L (98-107); Estimated CRCL calculation 55 ml/min; Estimated Glomerular Filt Rate > 60; Glucose 117 mg/dL (65-110); Lipase 69 U/L (23-300); Potassium 3.9 mmol/L (3.4-5.0); Sodium 136 mmol/L (137-145)
[2021-03-30 19:26] LABS: Troponin I < 0.012 ng/mL (0.000-0.034)
[2021-03-30 23:25] LABS: Troponin I < 0.012 ng/mL (0.000-0.034)
[2021-03-31 00:04] VITALS: BP 152/63; PULSE 58; RESP 15; O2SAT 97
== END 2021-03-30 23:44 | disposition home or self-care (01) ==
PROVIDERS: Emergency Medicine; Emergency Provider Emergency Medicine; PCP Internal Medicine
DX: R00.2 Palpitations (principal); E11.9 Type 2 diabetes mellitus without complications; I10 Essential (primary) hypertension; E78.2 Mixed hyperlipidemia; G25.81 Restless legs syndrome; M54.9 Dorsalgia, unspecified; G89.29 Other chronic pain; Z98.49 Cataract extraction status, unspecified eye; Z87.891 Personal history of nicotine dependence
CPT/HCPCS: 36415; 71046; 80053; 83690; 84484; 85025; 85610; 85730; 93005; 99284; A9270

== ENCOUNTER 2022-07-12 06:49 | Emergency (ER) | payer MEDICARE, SELFPAY ==
[2022-07-12] VITALS (15 sets, daily range): BP systolic 138–153; BP diastolic 63–81; PULSE 46–86; RESP 12–23; TEMP 36.1–36.4; O2SAT 98–100
--- NOTE | ~2022-07-12 | CT_ITS ---
EXAMINATION: CT brain wo con DATE: 07/12/2022 08:13 INDICATION: Weakness. TECHNIQUE: Computed tomography (CT) of the head was performed without intravenous contrast. The mA wa s adjusted according to patient size. Iterative reconstruction technique was employed. The dose-lengt h product was 605.33 mGy-cm. COMPARISON: Brain MRI 01/01/2021 FINDINGS: There are scattered areas of low attenuation in the cerebral white matter. There is no intr acranial hemorrhage, acute infarction, or abnormal intracranial mass lesion. The ventricles are cameron l in size. There is mild mucosal thickening in the paranasal sinuses. There are likely changes of ocu lar lens replacement surgeries. There is a right otomastoid effusion. There is a left otomastoid effu rolo. There are changes of left mastoidectomy. A left-sided cochlear implant is noted. IMPRESSION: 1. Stable moderate nonspecific cerebral white matter disease, which likely represents chronic small v essel ischemic disease. Reviewed, dictated and finalized at location A. IMPRESSION: 1. Stable moderate nonspecific cerebral white matter disease, which likely repr esents chronic small vessel ischemic disease.
--- NOTE | ~2022-07-12 | XR_ITS ---
EXAMINATION: XR chest 2V DATE: 07/12/2022 08:19 INDICATION: Dyspnea. TECHNIQUE: Frontal and lateral views of the chest were obtained. COMPARISON: Chest 2 views 03/30/2021 FINDINGS: Calcified right lung nodules and calcified right hilar lymph nodes are consistent with old granulomatous disease. No pleural effusion or pneumothorax. The heart size is normal. Surgical clips in the right upper quadrant are likely from cholecystectomy. IMPRESSION: 1. No acute cardiopulmonary disease. Reviewed, dictated and finalized at location A.
--- NOTE | 2022-07-12 07:06 | ED.SOB ---
HPI - SOB/Dyspnea General Chief Complaint: Shortness of Breath/Dyspnea Stated Complaint: shaking, lightheaded and short of breath Time Seen by Provider: 07/12/22 07:06 Source: patient and family Mode of arrival: ambulatory Limitations: no limitations History of Present Illness HPI Narrative: Patient is an 86-year-old male with a history of diabetes, hypertension, hyperlipidemia, depression, anxiety, hearing loss, presenting to the emergency department for evaluation of generalized weakness, cough and shortness of breath. Patient lives at home alone, awakened this morning reportedly felt unwell. Contacted his daughter who came to the house to evaluate him and brought him here to the emergency department for further evaluation. Patient reports he has been stuttering this morning and reports shaking in the bilateral upper extremities. He denies focal weakness or numbness. Patient denies any headache pain, chest pain, abdominal pain. No nausea or vomiting. He was able to tolerate a small amount of oral intake this morning. He reports shortness of breath that worsens with exertion. He reports chronic bilateral lower extremity swelling. Patient does report congestion, runny nose. States he recently started a new medication but cannot remember the name of it. Daughter also helps to provide the history. She is at bedside. Related Data Home Medications Medication Instructions Recorded Confirmed aspirin 81 mg tablet,delayed 81 mg PO DAILY 05/09/19 12/10/21 release (Adult Low Dose Aspirin) multivitamin (One Daily 1 tablet PO DAILY 05/09/19 12/10/21 Multivitamin tablet) docusate sodium 100 mg tablet 100 mg PO BID 03/30/21 12/10/21 glycerin 0.25 % eye drops (Clear drp ophthalmic (eye) 12/10/21 12/10/21 Eyes Dry Itchy Relief) oxybutynin chloride 15 mg 15 mg PO DAILY 12/10/21 12/10/21 tablet,extended release 24 hr sodium chloride, sodium ea .Route 12/10/21 12/10/21 bicarb-nasal rinse squeeze bottle with packet (Neilmed Sinus Rinse Complete with packet) Allergies Allergy/AdvReac Type Severity Reaction Status Date / Time No Known Allergies Allergy Verified 06/16/22 11:18 Review of Systems Review of Systems: CONSTITUTIONAL: Denies fever, chills, or sweats. EYES: Denies visual changes, redness, or discharge. ENT: Reports congestion without sore throat or otalgia CARDIOVASCULAR: Denies chest pain, palpitations, or edema. RESPIRATORY: Reports cough and shortness of breath GASTROINTESTINAL: Denies abdominal pain, nausea, vomiting, or diarrhea. GENITOURINARY: Denies dysuria or hematuria. SKIN: Denies rash or itching. MUSCULOSKELETAL: Denies back pain, joint pain, or myalgia. NEUROLOGIC: Denies headache, numbness; Reports shakiness and generalized weakness PMF Past Medical History Medical History (Updated 07/12/22 @ 09:38 by Damaris Burns MD) Acute UTI Anxiety and depression ASHD (arteriosclerotic heart disease) Chronic back pain DM2 (diabetes mellitus, type 2) CALHOUN (dyspnea on exertion) Essential (primary) hypertension Implantable intrathecal infusion pump present Mixed hyperlipidemia RLS (restless legs syndrome) Type 2 diabetes mellitus without complication, with no history of insulin use Surgical History Surgical History History of cataract extraction Hx of cholecystectomy Family History Family History Mother Family history of pancreatic cancer Sibling Family history of malignant neoplasm of ovary Father Family history of heart disease in male family member before age 55 Other Diabetes mellitus Social History Social History Social History: the patient lives home alone his is in the [facility]. He has 2 children. His children are both the durable power ob nurse for healthcare. The patient still continues to work in [employer]
--- NOTE | 2022-07-12 07:07 | ECG_ITS ---
Measurements Intervals [place] Rate: 80 P: 58 ND: 201 QRS: 4 QRSD: 105 T: 34 QT: 393 QTc: 454 Interpretive Statements SINUS RHYTHM WITH FREQUENT VENTRICULAR PREMATURE COMPLEXES POSSIBLE LEFT ATRIAL ENLARGEMENT [-0.1mV P WAVE IN V1/V2] ABNORMAL ECG COMPARED TO ECG 03/30/2021 16:19:38 SINUS RHYTHM NOW PRESENT Electronically Signed On 07-12-2022 14:41:29 CDT by Darin Short M.D.
[2022-07-12 07:36] LABS: Glucose Point of Care 100 mg/dl (65-105)
[2022-07-12 08:03] LABS: Basophils Percent Auto 0.7 % (0.2-1.2); Eosinophils Absolute Auto 0.2 K/mm3 (0-0.3); Eosinophils Percent Auto 2.8 % (0-4.4); Hematocrit 42.6 % (42.0-52.0); Hemoglobin 13.9 g/dL (14.0-18.0); Immature Granulocyte Absolute 0.01 K/mm3 (0.00-0.031); Immature Granulocyte Percent A 0.2 % (0-0.5); Lymphocytes Percent Auto 44.5 % (18.3-44.2); Mean Corpuscular HGB Conc 32.6 g/dl (32-36); Mean Corpuscular Hemoglobin 28.9 pg (26-34); Mean Corpuscular Volume 88.6 fl (80-100); Mean Platelet Volume 8.5 fl (7.4-10.4); Monocytes Absolute Auto 0.6 K/mm3 (0.1-0.6); Monocytes Percent Auto 10.8 % (2.6-8.5); Neutrophils Absolute Auto 2.2 K/mm3 (1.3-6.7); Platelet Count Result 192 k/mm3 (150-375); Red Blood Count 4.81 M/mm3 (4.6-6.20); Red Cell Distribution Width 13.2 % (11.5-14.5); White Blood Count 5.4 K/mm3 (4.5-10.0)
[2022-07-12 08:12] LABS: Alanine Aminotransferase 23 U/L (6-50); Albumin Level 3.9 g/dL (3.5-5.1); Alkaline Phosphatase 83 U/L (38-126); Anion Gap 6 mmol/L (8-16); Aspartate Amino Transferase 25 U/L (17-59); Bilirubin,Total 0.8 mg/dL (0.2-1.3); Blood Urea Nitrogen 17 mg/dL (9-20); Carbon Dioxide 28 mmol/L (22-30); Chloride 104 mmol/L (98-107); Estimated CRCL calculation 64 ml/min; Estimated Glomerular Filt Rate > 60; Glucose 99 mg/dL (65-110); Potassium 3.6 mmol/L (3.4-5.0); Sodium 138 mmol/L (137-145)
[2022-07-12 08:13] LABS: Lactic Acid Reflex 1.7 mmol/L (0.7-2.0)
[2022-07-12 08:14] LABS: INR 1.2; Prothrombin Time 14.3 Seconds (11.1-14.7)
[2022-07-12 08:15] LABS: Partial Thromboplastin Time 28.9 SECONDS (22.3-36.8)
[2022-07-12 08:24] LABS: NT Pro B Type Natriuretic Pept 102 pg/mL (19.9-100); Troponin I < 0.012 ng/mL (0.000-0.034)
[2022-07-12 08:38] LABS: Influenza A QL RT-PCR Negative (Negative); Influenza B QL RT-PCR Negative (Negative); RSV RNA, RT-PCR Negative (Negative); SARS-CoV-2 RNA PCR Negative (Negative)
[2022-07-12 08:42] LABS: Appearance Urine Clear (Clear); Bilirubin Urine Negative (Negative); Blood Urine Negative (Negative); Color Urine Yellow (Yellow); Glucose Urine UA Negative (Negative); Ketones Urine Trace mg/dL (Negative); Leukocyte Esterase Ur Negative LEU/UL (Negative); Nitrate Urine Negative (Negative); Protein Urine Negative (Negative); Specific Grav Ur 1.011 (1.001-1.035); pH Urine 8.5 (5.0-9.0)
[2022-07-12] MEDS: SODIUM CHLORIDE 0.9% IV 500 ML 999 ML IV CONT (08:47)
[2022-07-12 08:55] LABS: Add Urine Microscopic? NO
--- NOTE | 2022-07-12 09:38 | PC.NURSE ---
ambulated in [place] with pt, gait was steady with ambulation with his cane. SPO2 monitored while ambulating and the lowest SPO2 dropped with ambulation while talking was 96%. ERP notified.
== END 2022-07-12 09:59 | disposition home or self-care (01) ==
PROVIDERS: Emergency Provider Emergency Medicine; PCP Internal Medicine
DX: R06.02 Shortness of breath (principal); R25.1 Tremor, unspecified; Z20.822 Contact with and (suspected) exposure to COVID-19; F41.9 Anxiety disorder, unspecified; F32.A Depression, unspecified; I10 Essential (primary) hypertension; G89.29 Other chronic pain; E11.9 Type 2 diabetes mellitus without complications
CPT/HCPCS: 36415; 70450; 71046; 80053; 81003; 82948; 83605; 83880; 84484; 85025; 85610; 85730; 87040; 87637; 93005; 96360; 99284; J7040

== ENCOUNTER 2022-08-24 00:02 | Emergency (ER) | payer MEDICARE, SELFPAY ==
[2022-08-24 00:11] VITALS: BP 152/68; PULSE 75; RESP 18; TEMP 36.9; O2SAT 99
[2022-08-24 00:31] VITALS: BP 157/72; PULSE 77; RESP 13; TEMP 36.3; O2SAT 99
--- NOTE | 2022-08-24 00:54 | ED.GENADULT ---
HPI - General Adult General Chief complaint: Unspecified Stated complaint: terrible odor in my nose Time Seen by Provider: 08/24/22 00:32 History of Present Illness HPI narrative: This is an 86-year-old gentleman presenting ED with a chief complaint of a bad odor that he can taste and smell. His symptoms started 6 months ago after he microwave a heat CAD. They have been happening intermittently since then. The patient has no other complaints at this time. The daughter is with the patient says that he has been complaining of this for quite some time. He insisted on coming to the ER tonight because it was not improving like it usually does. Related Data Home Medications Medication Instructions Recorded Confirmed aspirin 81 mg tablet,delayed 81 mg PO DAILY 05/09/19 12/10/21 release (Adult Low Dose Aspirin) multivitamin (One Daily 1 tablet PO DAILY 05/09/19 12/10/21 Multivitamin tablet) docusate sodium 100 mg tablet 100 mg PO BID 03/30/21 12/10/21 glycerin 0.25 % eye drops (Clear drp ophthalmic (eye) 12/10/21 12/10/21 Eyes Dry Itchy Relief) oxybutynin chloride 15 mg 15 mg PO DAILY 12/10/21 12/10/21 tablet,extended release 24 hr sodium chloride, sodium ea .Route 12/10/21 12/10/21 bicarb-nasal rinse squeeze bottle with packet (Neilmed Sinus Rinse Complete with packet) Allergies Allergy/AdvReac Type Severity Reaction Status Date / Time No Known Allergies Allergy Verified 06/16/22 11:18 [facility] Past Medical History Medical History Acute UTI Anxiety and depression ASHD (arteriosclerotic heart disease) Chronic back pain DM2 (diabetes mellitus, type 2) CALHOUN (dyspnea on exertion) Essential (primary) hypertension Implantable intrathecal infusion pump present Mixed hyperlipidemia RLS (restless legs syndrome) Type 2 diabetes mellitus without complication, with no history of insulin use Surgical History Surgical History History of cataract extraction Hx of cholecystectomy Family History Family History Mother Family history of pancreatic cancer Sibling Family history of malignant neoplasm of ovary Father Family history of heart disease in male family member before age 55 Other Diabetes mellitus Social History Social History Social History: the patient lives home alone his is in the intermediate. He has 2 children. His children are both the durable power cadd drafter for healthcare. The patient still continues to work in sales. He denies any alcohol marijuana or illicit drugs. He is an ex-smoker. Code status full code Smoking packs per day: 2 Smoking cigarettes per day: 40.0 Years smoked: 10 Smoking pack-years: 20.00 Smoking status: Former smoker Second hand tobacco smoke exposure: No Smoking end date: 12/04/1966 Alcohol intake: never Substance use: never Lack of Transportation: No Lack of Food: Never True Current Housing: I Have Housing Concerned About Future Housing: No Difficulty Paying Gas/Electric Bills: Decline to Answer Difficulty Paying for Meds: Decline to Answer Currently Unemployed: Decline to Answer Education: Bachelor's Degree Difficulty w/ Childcare or Family Care: YES Spiritual care concerns: No Exam Narrative: APPEARANCE: No apparent distress. A&O x4 Head: atraumatic. EYES: EOMI, NOSE: Atraumatic NECK: Trachea midline RESPIRATORY: No increased rate of breathing, clear to auscultation CARDIOVASCULAR: RRR, pitting edema lower extremities ABDOMINAL: Non-distended soft nontender no guarding rebound MUSCULOSKELETAl: No obvious deformities NEURO: Alert. Cranial nerves 2-12 grossly intact. Sensation light touch, motor function cerebellar function intact for 4 extremities. Gait exam was deferred SKIN::
[2022-08-24] MEDS: ACETAMINOPHEN 500 MG TABLET 1000 MG PO (01:02)
[2022-08-24 01:46] LABS: Influenza A QL RT-PCR Negative (Negative); Influenza B QL RT-PCR Negative (Negative); RSV RNA, RT-PCR Negative (Negative); SARS-CoV-2 RNA PCR Negative (Negative)
[2022-08-24 02:03] VITALS: BP 161/79; PULSE 79; RESP 16; O2SAT 100
== END 2022-08-24 02:33 | disposition home or self-care (01) ==
PROVIDERS: Emergency Provider Emergency Medicine; PCP Internal Medicine
DX: R43.8 Other disturbances of smell and taste (principal); Z20.822 Contact with and (suspected) exposure to COVID-19; I25.10 Atherosclerotic heart disease of native coronary artery without angina pectoris; I10 Essential (primary) hypertension; E11.9 Type 2 diabetes mellitus without complications; E78.2 Mixed hyperlipidemia; G25.81 Restless legs syndrome; Z87.440 Personal history of urinary (tract) infections; Z79.82 Long term (current) use of aspirin; Z98.49 Cataract extraction status, unspecified eye; Z90.49 Acquired absence of other specified parts of digestive tract; Z87.891 Personal history of nicotine dependence
CPT/HCPCS: 87637; 99283; A9270

== ENCOUNTER 2022-10-18 14:30 | Emergency (ER) | payer MEDICARE, SELFPAY ==
[2022-10-18] VITALS (11 sets, daily range): BP systolic 175–199; BP diastolic 58–139; PULSE 50–66; RESP 13–20; TEMP 36.5; O2SAT 98–100
--- NOTE | ~2022-10-18 | XR_ITS ---
EXAMINATION: XR chest 2V Exam Date/Time: 10/18/2022 15:25 CDT HISTORY: bradycardia Comparison: 07/12/2022. RESULT: Lines, tubes, and devices: Cholecystectomy clips. Lungs and pleura: Slightly low volumes with crowding. Bibasilar atelectasis/scar. Senescent changes. Calcified granuloma. Cardiomediastinal silhouette: Stable. Calcified nodes. Other: No acute osseous or upper abdominal finding. IMPRESSION: No acute cardiopulmonary process. Reviewed, dictated and finalized at location K.
--- NOTE | 2022-10-18 14:55 | ECG_ITS ---
Measurements Intervals [place] Rate: 52 P: -28 RI: 131 QRS: -2 QRSD: 93 T: 17 QT: 449 QTc: 418 Interpretive Statements SINUS BRADYCARDIA OTHERWISE WITHIN NORMAL LIMITS COMPARED TO ECG 07/12/2022 07:45:28 SINUS BRADYCARDIA NOW PRESENT Electronically Signed On 10-19-2022 7:41:45 CDT by Chandrakant Qiu M.D.
[2022-10-18 15:25] LABS: Basophils Percent Auto 0.5 % (0.2-1.2); Eosinophils Percent Auto 0.5 % (0-4.4); Hematocrit 40.2 % (42.0-52.0); Immature Granulocyte Absolute 0.02 K/mm3 (0.00-0.031); Immature Granulocyte Percent A 0.3 % (0-0.5); Lymphocytes Absolute Auto 1.14 K/mm3 (0.9-3.2); Lymphocytes Percent Auto 19.7 % (18.3-44.2); Mean Corpuscular HGB Conc 32.3 g/dl (32-36); Mean Corpuscular Hemoglobin 28.6 pg (26-34); Mean Corpuscular Volume 88.4 fl (80-100); Mean Platelet Volume 8.7 fl (7.4-10.4); Monocytes Absolute Auto 0.5 K/mm3 (0.1-0.6); Platelet Count Result 222 k/mm3 (150-375); Red Blood Count 4.55 M/mm3 (4.6-6.20); Red Cell Distribution Width 12.9 % (11.5-14.5); White Blood Count 5.8 K/mm3 (4.5-10.0)
[2022-10-18 15:32] LABS: Alanine Aminotransferase 19 U/L (6-50); Albumin Level 3.7 g/dL (3.5-5.1); Alkaline Phosphatase 64 U/L (38-126); Anion Gap 3 mmol/L (8-16); Aspartate Amino Transferase 28 U/L (17-59); Bilirubin,Total 0.8 mg/dL (0.2-1.3); Blood Urea Nitrogen 15 mg/dL (9-20); Carbon Dioxide 27 mmol/L (22-30); Chloride 106 mmol/L (98-107); Estimated CRCL calculation 59 ml/min; Estimated Glomerular Filt Rate > 60; Glucose 101 mg/dL (65-110); Potassium 3.4 mmol/L (3.4-5.0); Sodium 136 mmol/L (137-145)
[2022-10-18 15:33] LABS: INR 1.2; Prothrombin Time 15.5 Seconds (11.1-14.7)
[2022-10-18 15:34] LABS: Partial Thromboplastin Time 27.8 SECONDS (22.3-36.8)
[2022-10-18 15:41] LABS: NT Pro B Type Natriuretic Pept 898 pg/mL (19.9-100)
[2022-10-18] MEDS: hydrALAZINE HCL 20 MG/ML VIAL 10 MG IV PUSH (16:35)
--- NOTE | 2022-10-18 18:54 | ED.GENADULT ---
HPI - General Adult General Chief complaint: Arrhythmia/Palpitations Stated complaint: low heart rate Time Seen by Provider: 10/18/22 14:51 History of Present Illness HPI narrative: The patient is a 86-year-old male who presents to the ER with reports of low heart rate. He noticed his heart rate was 44 today and called his family to bring him to the ER. Daughter states he was slightly shaky at first. He had no chest pain or chest pressure. No exertional fatigue or shortness of breath. No dizziness or lightheadedness with going from sitting to standing. Reports his heart rate is typically in the 50s. He takes no rate control medication. No additional concerns. Related Data Home Medications Medication Instructions Recorded Confirmed aspirin 81 mg tablet,delayed 81 mg PO DAILY 05/09/19 10/12/22 release (Adult Low Dose Aspirin) multivitamin (One Daily 1 tablet PO DAILY 05/09/19 10/12/22 Multivitamin tablet) docusate sodium 100 mg tablet 100 mg PO BID 03/30/21 10/12/22 oxybutynin chloride 15 mg 15 mg PO DAILY 12/10/21 10/12/22 tablet,extended release 24 hr simvastatin 10 mg tablet 20 mg PO DAILY 09/01/22 10/12/22 Allergies Allergy/AdvReac Type Severity Reaction Status Date / Time No Known Allergies Allergy Verified 10/18/22 15:05 Review of Systems Review of Systems: All systems reviewed & are unremarkable except as noted in HPI and below Constitutional: Constitutional: Denies chills, Denies fatigue and Denies fever(s) ENT: Denies nasal congestion and Denies sore throat Cardiovascular: Cardiovascular: Denies chest pain, Denies rapid heart rate, Denies radiating jaw, neck or arm pain and Reports slow heart rate Respiratory: Respiratory: Denies cough and Denies dyspnea Gastrointestinal: Gastrointestinal: Denies abdominal pain, Denies nausea and Denies vomiting Neurologic: Denies syncope, Denies headache(s), Denies focal weakness and Denies numbness PMFSH Past Medical History Medical History Acute UTI Anxiety and depression ASHD (arteriosclerotic heart disease) Chronic back pain DM2 (diabetes mellitus, type 2) CALHOUN (dyspnea on exertion) Essential (primary) hypertension Implantable intrathecal infusion pump present Mixed hyperlipidemia RLS (restless legs syndrome) Type 2 diabetes mellitus without complication, with no history of insulin use Surgical History Surgical History History of cataract extraction Hx of cholecystectomy Family History Family History Mother Family history of pancreatic cancer Sibling Family history of malignant neoplasm of ovary Father Family history of heart disease in male family member before age 55 Other Diabetes mellitus Social History Social History Social History: the patient lives home alone his is in the senior living. He has 2 children. His children are both the durable power trial attorney for healthcare. The patient still continues to work in sales. He denies any alcohol marijuana or illicit drugs. He is an ex-smoker. Code status full code Smoking packs per day: 2 Smoking cigarettes per day: 40.0 Years smoked: 10 Smoking pack-years: 20.00 Smoking status: Former smoker Second hand tobacco smoke exposure: No Smoking end date: 12/04/1966 Alcohol intake: never Substance use: never Lack of Transportation: No Lack of Food: Never True Current Housing: I Have Housing Concerned About Future Housing: No Difficulty Paying Gas/Electric Bills: Decline to Answer Difficulty Paying for Meds: Decline to Answer Currently Unemployed: Decline to Answer Education: Bachelor's Degree Difficulty w/ Childcare or Family Care: YES Spiritual care concerns: No Exam Narrative: GENERAL: Well-appearing, well-nourished,
== END 2022-10-18 19:05 | disposition home or self-care (01) ==
PROVIDERS: Emergency Provider Emergency Medicine; PCP Nurse Practitioner
DX: R00.1 Bradycardia, unspecified (principal); I10 Essential (primary) hypertension; E78.2 Mixed hyperlipidemia; E11.9 Type 2 diabetes mellitus without complications; Z87.891 Personal history of nicotine dependence; Z79.899 Other long term (current) drug therapy
CPT/HCPCS: 36415; 71046; 80053; 83880; 85025; 85610; 85730; 93005; 96374; 99284; J0360

== ENCOUNTER 2022-11-08 12:46 | Outpatient (CLI) | payer MEDICARE, SELFPAY ==
--- NOTE | 2022-11-11 12:51 | WPDHOLTEREM ---
Holter/Event Monitor Holter/Event Monitor Date of procedure: 11/08/22 Holter/Event Procedure: 48 Hr Holter Monitor Indications: Bradycardia Conclusion: 1. 48 hour holter monitor on 11/08/22. 2. Underlying rhythm is sinus rhythm. HR range 40-109 bpm; average HR 65 bpm. HR at 40 bpm was at 23:51. 3. There are 759 premature supraventricular complexes, 7 supraventricular couplets, 510 supraventricular bigeminy and 27 supraventricular trigeminy. No supraventricular tachycardia. 4. There are 979 premature ventricular complexes, 3 ventricular couplets, 3 ventricular bigeminy and 6 ventricular trigeminy. No ventricular tachycardia. 5. No sinoatrial or atrioventricular blocks. No significant pauses greater than 2 seconds. 6. Patient reports symptoms of headache which demonstrates sinus rhythm at 94 bpm.
== END 2022-11-08 12:47 | disposition home or self-care (01) ==
PROVIDERS: PCP Nurse Practitioner; Visit Provider Nurse Practitioner
DX: R00.1 Bradycardia, unspecified (principal)
CPT/HCPCS: 93225; 93226

== ENCOUNTER 2022-12-13 11:33 | Outpatient (CLI) | payer MEDICARE, SELFPAY ==
[2022-12-13 12:04] LABS: Appearance Urine Clear (Clear); Bilirubin Urine Negative (Negative); Blood Urine Negative (Negative); Color Urine Yellow (Yellow); Glucose Urine UA Negative (Negative); Ketones Urine Negative (Negative); Leukocyte Esterase Ur Negative LEU/UL (Negative); Nitrate Urine Negative (Negative); Protein Urine Negative (Negative); Specific Grav Ur 1.013 (1.001-1.035); Urobilinogen Urine 0.2 mg/dL (<2.0); pH Urine 6.5 (5.0-9.0)
[2022-12-13 12:06] LABS: Add Urine Microscopic? NO
[2022-12-13 12:25] LABS: Alanine Aminotransferase 16 U/L (6-50); Albumin Level 3.7 g/dL (3.5-5.1); Alkaline Phosphatase 75 U/L (38-126); Anion Gap 4 mmol/L (8-16); Aspartate Amino Transferase 25 U/L (17-59); Blood Urea Nitrogen 18 mg/dL (9-20); Calcium 8.7 mg/dL (8.4-10.2); Carbon Dioxide 35 mmol/L (22-30); Chloride 98 mmol/L (98-107); Estimated Glomerular Filt Rate > 60; Glucose 114 mg/dL (65-110); Potassium 3.1 mmol/L (3.4-5.0); Sodium 137 mmol/L (137-145)
[2022-12-13 12:28] LABS: Hemoglobin A1C 5.3 % (<5.7)
== END 2022-12-13 11:34 | disposition home or self-care (01) ==
LOC: ANHLAB 11:35
PROVIDERS: PCP Nurse Practitioner; Visit Provider Nurse Practitioner
DX: E11.9 Type 2 diabetes mellitus without complications (principal); E78.5 Hyperlipidemia, unspecified; R41.82 Altered mental status, unspecified
CPT/HCPCS: 36415; 80053; 81003; 83036

== ENCOUNTER 2022-12-16 14:37 | Outpatient (CLI) | payer MEDICARE, SELFPAY ==
--- NOTE | ~2022-12-16 | CT_ITS ---
EXAMINATION: CT brain wo con DATE: 12/16/2022 15:05 INDICATION: Sudden change in mentation. TECHNIQUE: Computed tomography (CT) of the head was performed without intravenous contrast. The dose- length product was 605.33 mGy-cm. Automated exposure control and iterative reconstruction technique w ere employed. COMPARISON: CT dated 07/12/2022 FINDINGS: No ventriculomegaly or midline shift. There are scattered moderate periventricular and subc ortical white matter changes, most likely related to small vessel ischemic disease (microangiopathy). There is a left-sided cochlear implant with left mastoidectomy. There is intracranial atherosclerosi s. No acute infarction, hemorrhage, infarction, mass or mass effect. IMPRESSION: 1. No acute intracranial abnormality. 2: Chronic age-related findings. Reviewed, dictated and finalized at location B.
== END 2022-12-16 14:38 | disposition home or self-care (01) ==
PROVIDERS: PCP Nurse Practitioner; Visit Provider Nurse Practitioner
DX: R41.82 Altered mental status, unspecified (principal)
CPT/HCPCS: 70450

== ENCOUNTER 2023-01-13 14:44 | Outpatient (CLI) | payer MEDICARE, SELFPAY ==
--- NOTE | ~2023-01-13 | CT_ITS ---
EXAMINATION: CT IAC/mastoids BI wo con DATE: 01/13/2023 15:29 INDICATION: Right ear drainage. Left cochlear implant. TECHNIQUE: Computed tomography (CT) of the temporal bones was performed without intravenous contrast. Automated exposure control and iterative reconstruction technique were employed. The dose-length pro duct was 422.39 mGy-cm. COMPARISON: Head CT 12/16/2022, brain MRI 01/01/2021 FINDINGS: There are likely changes of ocular lens replacement surgeries. There are scattered areas of low attenuation in the cerebral white matter, likely chronic small vessel ischemic disease. RIGHT TEMPORAL BONE: The external auditory canal, cochlea, vestibule, semicircular canals, vestibular aqueduct, carotid ca nal, and jugular bulb are normal. The ossicles are normal. There is an otomastoid effusion including opacification of [place] space. There is blunting of scutum. The external auditory canal is normal. LEFT TEMPORAL BONE: The internal auditory canal is normal. A cochlear implant is noted. The vestibule, semicircular canal s, vestibular aqueduct, carotid canal, and jugular bulb are normal. There are changes of mastoidectom y. There is an otomastoid effusion including material in Prussak space. There is blunting of scutum. There is dehiscence of tegmen tympani. The external auditory canal is normal. IMPRESSION: 1. Left-sided cochlear implant in expected position. 2. Chronic bilateral otomastoid effusions. Blunting of scutum on either side suggests chronic otitis media or cholesteatoma. Reviewed, dictated and finalized at location E. IMPRESSION: 1. Left-sided cochlear implant in expected position. 2. Chronic bilateral otomastoid effusions. Blunting of scutum on either side julian ggests chronic otitis media or cholesteatoma.
== END 2023-01-13 14:45 | disposition home or self-care (01) ==
PROVIDERS: PCP Nurse Practitioner
DX: Z96.21 Cochlear implant status (principal); H74.8X3 Other specified disorders of middle ear and mastoid, bilateral
CPT/HCPCS: 70480

== ENCOUNTER 2024-11-12 12:57 | Outpatient (CLI) | payer MEDICARE, SELFPAY ==
--- NOTE | ~2024-11-12 | CT_ITS ---
EXAMINATION: CT lumbar spine wo [place], 11/12/2024 13:00 CDT HISTORY: Chronic bilat lbp w/o sciatica COMPARISON: No comparisons available. Technique: Axial images were obtained of the spine per protocol. One or more of the following dose reduction techniques were used: automated exposure control, adjustment of the mA and/or kV according to patient size, use of iterative reconstruction technique. Unless otherwise stated, incidental findings do not require dedicated follow up imaging Findings: The vertebral heights are intact. No fracture or subluxation. Severe loss of disc height at L2-3 and L4-5 with moderate loss of disc height at L3-4 with circumferential bulging of the disc and disc osteophyte complex producing multilevel moderate to severe canal and foraminal stenosis most marked at L2-3, outpatient MRI suggested. Soft tissues of the spinal canal catheter entering the level of L2-3 passing superiorly. Impression: No acute abnormality. Reviewed, dictated and finalized at location A. Impression: No acute abnormality.
== END 2024-11-12 12:58 | disposition home or self-care (01) ==
LOC: MICIMG 12:58
PROVIDERS: PCP Nurse Practitioner; Visit Provider Chiropractor
DX: M48.062 Spinal stenosis, lumbar region with neurogenic claudication (principal); M54.50 Low back pain, unspecified; G89.29 Other chronic pain
CPT/HCPCS: 72131